=== PATIENT | female | born 1990 | race Caucasian/White ===

== ENCOUNTER 2017-11-24 16:53 | Emergency (ER) | payer OTHER, SELFPAY ==
[2017-11-24 18:37] VITALS: BP 142/73; PULSE 96; RESP 20; TEMP 37.3; O2SAT 98; BMI 28.6
--- NOTE | 2017-11-24 19:08 | CT_ITS ---
CT head/brain wo con HISTORY: ITS.REASON: HEADACHE ORDERING PHYSICIAN: Paul Navarro MD PATIENT AGE: 27 years COMPARISON: None TECHNIQUE: Axial images obtained without contrast. Brain and bone windows reviewed. FINDINGS: No midline shift, mass effect, intracranial hemorrhage, hydrocephalus, or extra-axial fluid collection is evident. There is mild cerebellar tonsillar ectopia somewhat greater on the right. This is of questioned clinical significance and would be better evaluated with MRI if clinically warranted. The calvarium has an unremarkable appearance. No mastoid effusion. There is moderate opacification of the ethmoid air cells posteriorly.. IMPRESSION: 1. No acute intracranial finding. 2. Cerebellar tonsillar ectopia. Consider MRI for further evaluation in this patient with headache. 3. Ethmoid sinus disease.
--- NOTE | 2017-11-24 19:36 | HMH.EDHA ---
ED Disposition Condition on Discharge: Good - Critical Care Critical Care Time: No <Paul Navarro - Last Filed: 11/24/17 19:56> <Guanaco Moss - Last Filed: 11/24/17 20:34> Clinical Impression: Migraine Qualifiers: Migraine type: unspecified Status migrainosus presence: without status migrainosus Intractability: not intractable Qualified Code(s): G43.909 - Migraine, unspecified, not intractable, without status migrainosus Disposition: Home, Self-Care Instructions: Migraine -- Adult, DI for Headache Attestation: On 11/24/17, the high probability of a clinically significant, sudden or life threatening deterioration of the following system(s) required my full and direct attention, intervention and personal management. The time I documented below is in addition to time spent performing reported procedures but includes the following listed in this critical care notation. Medical Decision Making - Remigio Inquiry Pt receiving controlled substance: No <Paul Navarro Indira - Last Filed: 11/24/17 19:56> - CT Data CT Scan: Head Time Received: 20:[address] Reviewed: Yes: I have viewed the radiologist's interpretation Preliminary Findings: Normal/NAD <Guanaco Moss - Last Filed: 11/24/17 20:34> Vital Signs: 11/24/17 18:37 Temperature 99.2 F Temperature Source Temporal Artery Scan Pulse Rate [Brachial] 96 H Respiratory Rate 20 Blood Pressure [Right Arm] 142/73 Blood Pressure Mean [Right Arm] 96 Blood Pressure Source [Right Arm] Automatic Cuff Blood Pressure Position [Right Arm] Sitting 02 Sat by Pulse Oximetry 98 Oxygen Delivery Method Room Air Orders (Tests/Meds): ED MEDICATIONS Discontinued Medications Generic Name Dose Route Start Last Admin Trade Name Freq PRN Reason Stop Dose Admin Diphenhydramine HCl 50 mg 11/24/17 19:13 11/24/17 19:25 Benadryl 50mg/1ml Vial IM 11/24/17 19:14 50 mg ONCE ONE Administration Ketorolac Tromethamine 60 mg 11/24/17 19:13 11/24/17 19:25 Toradol 60mg/2ml Vial IM 11/24/17 19:14 60 mg ONCE ONE Administration Metoclopramide HCl 10 mg 11/24/17 19:13 11/24/17 19:25 Reglan 10mg/2ml Vial IM 11/24/17 19:14 10 mg ONCE ONE Administration Headache HPI - General Mode of Arrival: Ambulatory Source of Information: Patient Limitations: No Limitations Description of Symptoms (Recalled from ER Triage Doc. by RN): PT STATES SHE HAS HAD A 5 H/A FOR 5 DAYS, BLURRY VISION, FEELING LIKE STABBING IN LEFT [place] AREA. - History of Present Illness MD Complaint: headache, migraine (5) Onset (ago): day(s) (5-6) Onset description: gradual Location: left Severity: severe Severity scale (1-10): 10 Quality: throbbing, worst headache of life Relieving factors: nothing Exacerbating factors: movement of head/neck, sitting/standing, light, noise Context: occurred with exertion/activity Associated symptoms: none Treatments prior to arrival: acetaminophen, ibuprofen, migraine medication <Paul Navarro - Last Filed: 11/24/17 19:56> <Guanaco Moss - Last Filed: 11/24/17 20:34> - General Chief Complaint: Headache Stated Complaint: ASIF Time Seen by Provider: 11/24/17 18:37 - History of Present Illness HPI Narrative: This is a 37-year-old female patient arrived to the emergency room with left sided headache, onset 6 days ago. Patient describes this headache as worst of her, although she has had headaches in the past, none of them have been associated. Patient feels nauseated, however she denies any neck stiffness, fever or vomiting. (Paul Navarro) - Related Data Home Medications Medication Instructions Recorded Confirmed Dicyclomine HCl [Bentyl] 10 mg PO DAILY 11/24/17 11/24/17 Allergies Allergy/AdvReac Type Severity Reaction Status Date / Time cefdinir [CEFDINIR] Allergy Mild Verified 11/24/17 17:08 Sulfa (Sulfonamide Allergy Mild Verified 11/24/17 17:08 Antibiotics) [SULFA (SULFONAMIDE ANT
--- NOTE | 2017-11-24 19:39 | ED_ITS ---
ED Disposition Condition on Discharge: Good - Critical Care Critical Care Time: No <Paul Navarro - Last Filed: 11/24/17 19:56> <Guanaco Moss - Last Filed: 11/24/17 20:34> Clinical Impression: Migraine Qualifiers: Migraine type: unspecified Status migrainosus presence: without status migrainosus Intractability: not intractable Qualified Code(s): G43.909 - Migraine, unspecified, not intractable, without status migrainosus Disposition: Home, Self-Care Instructions: Migraine -- Adult, DI for Headache Attestation: On 11/24/17, the high probability of a clinically significant, sudden or life threatening deterioration of the following system(s) required my full and direct attention, intervention and personal management. The time I documented below is in addition to time spent performing reported procedures but includes the following listed in this critical care notation. Medical Decision Making - Remigio Inquiry Pt receiving controlled substance: No <Paul Navarro Indira - Last Filed: 11/24/17 19:56> - CT Data CT Scan: Head Time Received: 20:[address] Reviewed: Yes: I have viewed the radiologist's interpretation Preliminary Findings: Normal/NAD <Guanaco Moss - Last Filed: 11/24/17 20:34> Vital Signs: 11/24/17 18:37 Temperature 99.2 F Temperature Source Temporal Artery Scan Pulse Rate [Brachial] 96 H Respiratory Rate 20 Blood Pressure [Right Arm] 142/73 Blood Pressure Mean [Right Arm] 96 Blood Pressure Source [Right Arm] Automatic Cuff Blood Pressure Position [Right Arm] Sitting 02 Sat by Pulse Oximetry 98 Oxygen Delivery Method Room Air Orders (Tests/Meds): ED MEDICATIONS Discontinued Medications Generic Name Dose Route Start Last Admin Trade Name Freq PRN Reason Stop Dose Admin Diphenhydramine HCl 50 mg 11/24/17 19:13 11/24/17 19:25 Benadryl 50mg/1ml Vial IM 11/24/17 19:14 50 mg ONCE ONE Administration Ketorolac Tromethamine 60 mg 11/24/17 19:13 11/24/17 19:25 Toradol 60mg/2ml Vial IM 11/24/17 19:14 60 mg ONCE ONE Administration Metoclopramide HCl 10 mg 11/24/17 19:13 11/24/17 19:25 Reglan 10mg/2ml Vial IM 11/24/17 19:14 10 mg ONCE ONE Administration Headache HPI - General Mode of Arrival: Ambulatory Source of Information: Patient Limitations: No Limitations Description of Symptoms (Recalled from ER Triage Doc. by RN): PT STATES SHE HAS HAD A 5 H/A FOR 5 DAYS, BLURRY VISION, FEELING LIKE STABBING IN LEFT [place] AREA. - History of Present Illness MD Complaint: headache, migraine (5) Onset (ago): day(s) (5-6) Onset description: gradual Location: left Severity: severe Severity scale (1-10): 10 Quality: throbbing, worst headache of life Relieving factors: nothing Exacerbating factors: movement of head/neck, sitting/standing, light, noise Context: occurred with exertion/activity Associated symptoms: none Treatments prior to arrival: acetaminophen, ibuprofen, migraine medication <Paul Navarro - Last Filed: 11/24/17 19:56> <Guanaco Moss - Last Filed: 11/24/17 20:34> - General Chief Complaint: Headache Stated Complaint: ASIF Time Seen by Provider: 11/24/17 18:37 - History of Present Illness HPI Narrative: This is a 37-year-old female patient arrived to the emergency room with lef
--- NOTE | 2017-11-24 20:04 | PC.NURSE ---
PATIENT STATES PAIN HAS DECREASED AND NOT SHARP BUT STILL HAS S0ME PAIN
== END 2017-11-24 20:41 | disposition home or self-care (01) ==
LOC: UTC 17:01 → ER 18:44
PROVIDERS: Emergency Provider Emergency Medicine; Family Provider Family Medicine
DX: G43.009 Migraine without aura, not intractable, without status migrainosus (principal); F17.210 Nicotine dependence, cigarettes, uncomplicated; Z79.899 Other long term (current) drug therapy
CPT/HCPCS: 70450; 96372; 99203; 99282

== ENCOUNTER → 2020-10-11 12:43 | Outpatient (CLI) | payer OTHER, SELFPAY ==
--- NOTE | 2020-10-11 12:52 | XR_ITS ---
PROCEDURE: XR SHOULDER RT MIN 2V CLINICAL INDICATION: RT SHOULDER INJURY,DECREASED ROM COMPARISON: No exams were available for comparison FINDINGS: No fracture or dislocation. No lytic or blastic change. There is normal mineralization. The joint spaces are well-preserved. No significant degenerative/arthritic changes. No erosive changes evident. Other findings:None. IMPRESSION: No acute findings. Dictated by: Jose Verdugo MD 10/11/2020 13:21 Jose Verdugo MD in [place] 10/11/2020 13:21
== END ==
PROVIDERS: PCP Nurse Practitioner Family; Visit Provider Nurse Practitioner Family
DX: S49.91XA Unspecified injury of right shoulder and upper arm, initial encounter (principal); M25.611 Stiffness of right shoulder, not elsewhere classified
CPT/HCPCS: 73030

== ENCOUNTER 2020-10-15 11:45 | Emergency (ER) | payer OTHER, SELFPAY ==
[2020-10-15 12:10] VITALS: BP 110/60; PULSE 99; RESP 20; O2SAT 97; BMI 29.7
--- NOTE | 2020-10-15 12:42 | HMH.EDUTC ---
[facility] [place] Impression: Sinusitis Qualifiers: Sinusitis location: unspecified location Chronicity: unspecified Qualified Code(s): J32.9 - Chronic sinusitis, unspecified Disposition: Home, Self-Care Condition on Discharge: Good Instructions: Sinusitis, Sinus Headache, DI for Cough -- Adult, Cough Additional Instructions: *Monitor Temp, Over the counter Motrin or Tylenol as directed/as needed Tylenol every 4 hours and Motrin every 6 hours (as long as your family doctor has told you that you can take it) for fever or pain. and straight to ER if unable to lower temp less than 101.0 after medication given *Warm salt water gargles may help to soothe the throat *Throat Lozenges *Warm fluids like tea with honey may help to soothe the throat *Sleep elevated *Humidifier/Vaporizer *Flonase 2 sprays in each nostril daily but be aware that it may take 2-3 days before you notice improvement Follow up IMMEDIATELY for new or worsening symptoms or no Noticeable improvement over the next 48-72 hours. 911 for difficulty breathing or swallowing Prescriptions: Fluticasone Propionate [Flonase 50mcg nasal spray 16gm] 1 spr NS DAILY #1 bottle Transmission Status: Pending to [facility] # Benzonatate [Tessalon Perle 100mg Cap*] 100 mg PO TID PRN #15 cap PRN Reason: Cough Transmission Status: Pending to [facility] # Azithromycin [Z-Yogi 250mg Tab] 250 mg PO DIRECTED #6 tab Transmission Status: Pending to [facility] # Referrals: Donald Henning MD [Primary Care Provider] - As needed Time of Disposition: 12:47 Medical Decision Making - Remigio Inquiry Pt receiving controlled substance: No Remigio was queried for this patient: No Vital Signs: 10/15/20 12:10 Pulse Rate [Radial] 99 H Respiratory Rate 20 Blood Pressure [Right Arm] 110/60 Blood Pressure Mean [Right Arm] 76 Blood Pressure Source [Right Arm] Automatic Cuff Blood Pressure Position [Right Arm] Sitting 02 Sat by Pulse Oximetry 97 Oxygen Delivery Method Room Air [facility] [place] - General Stated complaint: cough, congestion, fever Time Seen by Provider: 10/15/20 12:42 Mode of Arrival: Ambulatory Source of Information: Patient Limitations: No Limitations Description of Symptoms (Recalled from Triage Doc. by RN): COUGH, RUNNY NOSE HEENT Symptoms (Recalled from RN notes): Yes Resp Symptoms (Recalled from RN notes): No Skin Symptoms (Recalled from RN notes): No MS Symptoms (Recalled from RN notes): No Functional Status (Recalled from RN notes): WNL - History of Present Illness Provider Complaint: Maetent states that she has been having sinus pain and pressure, cough and feeling of pressure behind her eyes States that she has been blowing yellowish colored mucous from her nose State that she has been having issues on and off for over a week - Related Data Home Medications Medication Instructions Recorded Confirmed dicyclomine 20 mg tablet PO 30 Days #120 tab 10/24/18 10/24/18 meloxicam 15 mg tablet PO 30 Days #30 tab 10/24/18 10/24/18 Previous Rx's Medication Instructions Recorded Azithromycin [Zithromax 250mg 250 mg PO DIRECTED #6 tab 11/11/18 tab] Promethazine/Dextromethorphan 5 ml PO Q12H PRN #100 ml MDD 11/11/18 [Promethazine-Dm Syrup] 30ML/DAY Azithromycin [Z-Yogi 250mg Tab] 250 mg PO DIRECTED #6 tab 10/15/20 Benzonatate [Tessalon Perle 100mg 100 mg PO TID PRN #15 cap 10/15/20 Cap*] Fluticasone Propionate [Flonase 1 spr NS DAILY #1 bottle 10/15/20 50mcg nasal spray 16gm] Allergies Allergy/AdvReac Type Severity Reaction Status Date / Time cefdinir [CEFDINIR] Allergy Mild Verified 10/24/18 11:29 Sulfa (Sulfonamide Allergy Mild Verified 10/24/18 11:29 Antibiotics) [SULFA (SULFONAMIDE ANTIBIOTICS)] Penicillins [PENICILLINS] Allergy Unknown Verified 10/24/18 11:29 - Worker's Comp Is this a Worker's Comp case?: No [facility] History - Hepatitis
[2020-10-15 13:03] VITALS: BP 110/60; PULSE 99; RESP 20; TEMP 36.6; O2SAT 97
== END 2020-10-15 13:04 | disposition home or self-care (01) ==
PROVIDERS: Emergency Provider Nurse Practitioner; PCP Family Medicine
DX: J32.9 Chronic sinusitis, unspecified (principal); J45.909 Unspecified asthma, uncomplicated; Z88.0 Allergy status to penicillin; Z88.2 Allergy status to sulfonamides
CPT/HCPCS: 99201

== ENCOUNTER → 2021-02-28 10:18 | Outpatient (CLI) | payer OTHER, SELFPAY ==
--- NOTE | 2021-02-28 10:18 | US_ITS ---
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 RIGHT OVARY: [id number] with a volume of 1.8ml. There are small nabothian cysts. There is a 2 cm left ovarian cyst which has unremarkable appearance. IMPRESSION: Unremarkable pelvic ultrasound Dictated by: Jose Verdugo MD 02/28/2021 18:10 Jose Verdugo MD in [place] 02/28/2021 18:10
== END ==
PROVIDERS: PCP Family Medicine; Visit Provider Radiology Diagnostic Radiology
DX: N92.0 Excessive and frequent menstruation with regular cycle (principal); N94.6 Dysmenorrhea, unspecified
CPT/HCPCS: 76830

== ENCOUNTER → 2021-05-06 15:46 | Outpatient (CLI) | payer OTHER, SELFPAY ==
[2021-05-06 16:14] LABS: Basophils % 0.5 % (0.1-2.0); Eosinophils # 0.1 K/mm3 (0.0-0.4); Eosinophils % 1.7 % (0.1-12.0); Hematocrit 35.4 % (37.0-47.0); Lymphocytes % 24.1 % (10-50); Mean Corpuscular Hemoglobin 32.6 pg (27.0-31.2); Mean Platelet Volume 7.5 fl (7.4-10.4); Monocytes # 0.2 K/mm3 (0.1-1.0); Monocytes % 2.9 % (1.7-9.3); Neutrophils # 5.9 K/mm3 (1.8-7.8); Neutrophils % 70.7 % (37.0-80.0); Platelet Count 351 K/mm3 (142-424); Red Blood Count 3.69 M/mm3 (4.20-5.40); White Blood Count 8.3 K/mm3 (4.8-10.8)
[2021-05-06 16:29] LABS: Chloride 107 mmol/L (98-107); Potassium 3.6 mmoL/L (3.5-5.1); Sodium 141 mmol/L (136-145)
[2021-05-06 16:32] LABS: Alanine Aminotransferase 10 U/L (12-78); Albumin Level 3.9 g/dl (3.5-5.0); Albumin/Globulin Ratio 1.2 (1.1-1.8); Alkaline Phosphatase 97 U/L (38-126); Anion Gap 8.6 mEq/L (5-15); Aspartate Amino Transferase 21 U/L (14-36); Bilirubin,Total 0.2 mg/dl (0.2-1.3); Blood Urea Nitrogen 2 mg/dl (7-17); Carbon Dioxide 29 mmol/L (22.0-30.0); Estimated Glomerular Filt Rate 117 ml/min (>60); GFR (African American) 142 ML/MIN (>60); Globulin 3.3 g/dL (1.3-3.2); Glucose 119 mg/dl (74-100); Total Protein,Serum 7.2 g/dl (6.3-8.2)
[2021-05-06 16:54] LABS: Erythrocyte Sedimentation Rate 70 mm/hr (0-20)
[2021-05-06 17:02] LABS: Thyroid Stimulating Hormone 0.91 uIU/mL (0.465-4.68)
[2021-05-06 20:35] LABS: C-Reactive Protein 41.3 mg/L (0-4)
[2021-05-06 21:37] LABS: Vitamin B12 187 pg/mL (239-931)
[2021-05-06 21:39] LABS: Folate 2.75 ng/mL
[2021-05-07 14:33] LABS: Hemoglobin A1C 5.4 % (4.0-6.0)
[2021-05-08 09:06] LABS: RA Latex Turbid. 10.5 IU/mL (0.0-13.9)
[2021-05-09 21:38] LABS: Antinuclear Antibodies, IFA Positive (.)
[2021-05-23 09:20] LABS: Cotinine 168; Nicotine 15.9
== END ==
PROVIDERS: Podiatrist; Visit Provider Nurse Practitioner
DX: M79.673 Pain in unspecified foot (principal); M79.671 Pain in right foot; M79.672 Pain in left foot
CPT/HCPCS: 36415; 80053; 80323; 82607; 82746; 83036; 84443; 84550; 85025; 85651; 86038; 86140; 86431

== ENCOUNTER 2021-06-14 11:23 | Emergency (ER) | payer OTHER, SELFPAY ==
[2021-06-14 11:23] VITALS: BP 112/77; PULSE 83; RESP 19; TEMP 37.2; O2SAT 99; BMI 29.0
--- NOTE | 2021-06-14 11:58 | HMH.EDUTC ---
[facility] [place] Clinical Impression: Exposure to COVID-19 virus Disposition: Home, Self-Care Condition on Discharge: Good Instructions: Preventing the Spread of Coronavirus Discharge Instructions Additional Instructions: You have been tested for COVID19. Please isolate yourself as if you are positive until test results received. Referrals: Russell Quevedo JR, MD [Primary Care Provider] - Time of Disposition: 12:24 Medical Decision Making - Remigio Inquiry Pt receiving controlled substance: No Vital Signs: 06/14/21 11:23 Temperature 98.9 F Temperature Source Oral Pulse Rate [Left Radial] 83 Respiratory Rate 19 Blood Pressure [Right Arm] 112/77 Blood Pressure Mean [Right Arm] 88 Blood Pressure Source [Right Arm] Automatic Cuff Blood Pressure Position [Right Arm] Sitting 02 Sat by Pulse Oximetry 99 Oxygen Delivery Method Room Air - Lab Data Lab results reviewed: Yes: I reviewed the patient's lab results. Lab Results 06/14/21 12:07: Strep Scn Rapid Clinic Negative Orders (Tests/Meds): ORDERS Category Date Time Status Covid-19 Nasal PCR ([facility]) Routine Lab 06/14/21 11:52 Received Strep Screen Confirmation Stat Micro 06/14/21 12:07 Received [facility] [place] - General Stated complaint: sore throat, body aches, fever, ear pain Time Seen by Provider: 06/14/21 11:58 - History of Present Illness Provider Complaint: Sore throat, body aches, fever, bilateral ear pain, headache X 2 days. Dawit's boss recently diagnosed with COVID19. Dawit has similar symptoms and is being tested elsewhere. Onset (ago): day(s) (2) Location: head Relieving factors: none Exacerbating factors: none Associated symptoms: cough, fever/chills, malaise Treatments prior to arrival: none - Related Data Home Medications Medication Instructions Recorded Confirmed citalopram 10 mg tablet 10 mg PO tab 02/25/21 05/06/21 dicyclomine 10 mg capsule 10 mg PO cap 02/25/21 05/06/21 Allergies Allergy/AdvReac Type Severity Reaction Status Date / Time cefdinir [CEFDINIR] Allergy Mild Verified 05/06/21 14:19 Sulfa (Sulfonamide Allergy Mild Verified 05/06/21 14:19 Antibiotics) [SULFA (SULFONAMIDE ANTIBIOTICS)] Penicillins [PENICILLINS] Allergy Unknown Verified 05/06/21 14:19 [facility] History - Hepatitis A Screen Attestation statement:: This patient has been screened for Hepatitis A risk factors. I have reviewed the patient's past medical history: Yes Medical History: Reports:: Asthma, Migraine Other Medical History: Reports: Other Laterality Cases: Bilateral: Tonsillectomy Other Surgeries: Yes: Cholecystectomy, Colonoscopy, Tubal Ligation Amputation: No Fractures: No Comment: Large Mole removed 2008, oral surgery - Social History Smoking Status: Current every day smoker Tobacco Type: cigarettes # Packs/Day (cigarettes): 1 Alcohol Intake: never Occupational Status: other Housing: house Family Hx:: Diabetes, Coronary Artery Disease, Asthma Comment: Multiple Sclerosis, Arthritis ROS Obtained: Yes All systems reviewed & no additional complaints - Constitutional Constitutional: Reports system reviewed and no additional complaints, except as docu, Reports chills, Reports fever(s), Reports headache(s), Reports malaise - ENT Ears, Nose, Mouth, and Throat: Reports nasal congestion, Reports sore throat - Respiratory Respiratory: Reports cough Physical Exam - General General appearance: alert, in no apparent distress - Head Head exam: normocephalic - Eye Eye exam: Present: PERRL - Expanded ENT Exam TM/Canal exam: Bilateral TM: erythema Nose exam: Absent: sinus tenderness Throat exam: Present: tonsillar erythema, tonsillomegaly - Neck Neck exam: Present: lymphadenopathy - Chest Chest inspection: Present: normal inspection, symmetric chest wall rise - Respiratory Respiratory exam: Present: normal lung sounds bilaterally. Absent: respiratory distress, wheezes - Cardiovascul
[2021-06-14 12:14] LABS: UTC Strep Screen (Rapid) Negative (Negative)
[2021-06-14 12:35] VITALS: BP 112/77; PULSE 83; RESP 19; TEMP 37.2; O2SAT 99
== END 2021-06-14 12:37 | disposition home or self-care (01) ==
PROVIDERS: Emergency Provider Physician Assistant; PCP Family Medicine
DX: Z20.822 Contact with and (suspected) exposure to COVID-19 (principal); J02.9 Acute pharyngitis, unspecified; R50.9 Fever, unspecified; J45.909 Unspecified asthma, uncomplicated; Z88.0 Allergy status to penicillin; Z88.2 Allergy status to sulfonamides
CPT/HCPCS: 87880; 99202; G0463; U0003

== ENCOUNTER → 2021-08-09 09:57 | Outpatient (CLI) | payer OTHER, SELFPAY ==
--- NOTE | 2021-08-09 09:59 | MR_ITS ---
PROCEDURE INFORMATION: Exam: MR Left Lower Extremity Joint Without Contrast, Knee Exam date and time: 08/09/2021 9:59 AM Age: 30 years old Clinical indication: Patient HX: Left anterior knee pain and swelling, numbness x2 weeks. No injury; Additional info: Left knee pain, tibial torsion, instability TECHNIQUE: Imaging protocol: MR of the Left lower extremity joint without contrast. Exam focused on the knee. COMPARISON: No relevant prior studies available. FINDINGS: Bones and cartilage: No acute fracture. No bone contusion. No aggressive bone lesion. Scattered foci of hematopoietic marrow. Articular cartilage is preserved. Joint spaces: Trace joint effusion. Bursae: Small Ireland's cyst measuring 1.1 x 0.8 x 2.6 cm. Medial meniscus: There is mild intrasubstance high signal within the posterior horn of the medial meniscus, without extension to an articular surface, and therefore not meeting criteria for a tear. Lateral meniscus: Normal. Anterior cruciate ligament: Unremarkable. No tear. Posterior cruciate ligament: Unremarkable. No tear. Medial capsule and supporting structures: Unremarkable. No tear. Lateral capsule and supporting structures: Unremarkable. No tear. Extensor mechanism of knee: Unremarkable. No tear. Tibial tuberosity to trochlear groove distance is within normal limits. Muscles: Mild tendinosis of the medial head gastrocnemius tendon origin. Soft tissues: Unremarkable. IMPRESSION: 1. Mild intrasubstance high signal within the posterior horn of the medial meniscus, without evidence of a meniscal tear. 2. Mild medial head gastrocnemius tendinosis. 3. Small Ireland's cyst.
== END ==
PROVIDERS: PCP Family Medicine; Visit Provider Nurse Practitioner Family
DX: M25.562 Pain in left knee (principal); M21.869 Other specified acquired deformities of unspecified lower leg; M25.362 Other instability, left knee
CPT/HCPCS: 73721

== ENCOUNTER 2021-08-22 18:02 | Emergency (ER) | payer OTHER, SELFPAY ==
[2021-08-22 18:04] VITALS: BP 121/80; PULSE 70; RESP 19; TEMP 37.1; O2SAT 98
--- NOTE | 2021-08-22 18:46 | HMH.EDGENADL ---
ED Disposition Clinical Impression: Paresthesia of left foot Disposition: Home, Self-Care Condition on Discharge: Good Instructions: DI for Numbness/Tingling Referrals: Donald Henning MD [Primary Care Provider] - Gerardo Quinn MD [Staff Physician] - - Critical Care Critical Care Time: No Attestation: On 08/22/21, the high probability of a clinically significant, sudden or life threatening deterioration of the following system(s) required my full and direct attention, intervention and personal management. The time I documented below is in addition to time spent performing reported procedures but includes the following listed in this critical care notation. Medical Decision Making - Medical Records Medical records reviewed: Yes: I reviewed the patient's medical records. - Remigio Inquiry Pt receiving controlled substance: No Vital Signs: 08/22/21 18:04 Temperature 98.8 F Temperature Source Oral Pulse Rate [Radial] 70 Respiratory Rate 19 Blood Pressure [Right Radial Artery] 121/80 Blood Pressure Mean [Right Radial Artery] 93 Blood Pressure Position [Right Radial Artery] Sitting 02 Sat by Pulse Oximetry 98 - Lab Data Lab Results 08/22/21 18:34: D-Dimer 0.44 - Radiology Data #1 Image(s): Knee Image Reviewed: Yes I reviewed the patient's radiology results, Yes I reviewed the patient's radiology image, Yes I have reviewed radiologist's interpretation IMPRESSION: 1. Mild intrasubstance high signal within the posterior horn of the medial meniscus, without evidence of a meniscal tear. 2. Mild medial head gastrocnemius tendinosis. 3. Small Ireland's cyst. - Reevaluation(s) Time: 19:09 Reevaluation #1: On reevaluation, patient is feeling better. Her D-dimer is negative. Again her symptoms are not consistent with DVT. I did explain to her if the patient would like to come back in the morning to obtain full vascular studies we can obtain this. The compartment is soft and there are no signs of compartment syndrome. There is no evidence of vascular compromise. Patient will maintain her orthopedic follow-up. Given strict return precautions. Verbalized understanding. Medical Decision Narrative: 30-year-old female presented to the emergency department with some numbness of the left foot. I do believe her symptoms are consistent with paresthesia. She does not appear to have any obvious neuro deficit. She has good sensation to pain. I did review the patient's MRI. Did not show any acute abnormality. We will obtain D-dimer at this time as I do not have ultrasound available. However I do believe her symptoms are not consistent with acute DVT. Hemodynamically stable. Work-up initiated. General Adult HPI - General Chief complaint: PAIN Stated complaint: Pain left leg no fellings Time Seen by Provider: 08/22/21 18:10 Mode of Arrival: Wheelchair Limitations: No Limitations Description of Symptoms (Recalled from ER Triage Doc. by RN): TO ED PER PVT CAR WITH C/O NUMBNESS, TINGLING, LT LOWER LEG STATES I CAN'T FEEL ANYTHING FROM KNEE DOWN. PT STATES SHE HAD A MRI 08/09 FOR KNEE PAIN - History of Present Illness HPI narrative: 30-year-old female presented to the emergency department with some paresthesias in her left foot. Patient states that she has had this for the last 3 days. The patient has also been dealing with some knee discomfort for quite some time. She recently had an MRI which showed some bursitis, however no other fractures or dislocations. The patient is scheduled to follow-up with orthopedic surgery next week. However over the last few days she started getting some numbness and tingling in her left foot and toes. She denies any new trauma to the area. She is able to walk on it, however she states that it just feels funny. She is not having any fevers or chills. Denies any injections to the area. No chest pain or shortness of breath. No abdominal pain or vomiting. No h
[2021-08-22 18:54] LABS: D-Dimer 0.44 ug/mL (0.0-0.5)
[2021-08-22 19:13] VITALS: BP 127/86; PULSE 73; RESP 18; TEMP 37.1; O2SAT 98
== END 2021-08-22 19:15 | disposition home or self-care (01) ==
PROVIDERS: Emergency Provider Emergency Medicine; PCP Family Medicine
DX: M79.672 Pain in left foot (principal); M79.662 Pain in left lower leg; F17.210 Nicotine dependence, cigarettes, uncomplicated; Z88.0 Allergy status to penicillin; Z88.2 Allergy status to sulfonamides
CPT/HCPCS: 85378; 99282

== ENCOUNTER → 2021-09-12 07:35 | Outpatient (CLI) | payer OTHER, SELFPAY ==
--- NOTE | 2021-09-12 07:39 | XR_ITS ---
PROCEDURE: XR KNEE LT 4V CLINICAL INDICATION: LT knee pain COMPARISON: No exams were available for comparison FINDINGS: No fracture or dislocation. No lytic or blastic change. There is normal mineralization. There is slight decrease in the joint space medially with minimal osteophyte formation along the medial aspect of the proximal tibia Other findings:None. 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
== END ==
PROVIDERS: PCP Family Medicine; Visit Provider Orthopaedic Surgery
DX: M25.562 Pain in left knee (principal)
CPT/HCPCS: 73564

== ENCOUNTER 2021-09-12 09:27 | Outpatient (RCR) | payer OTHER, SELFPAY | END 2021-09-12 10:24 | disposition home or self-care (01) | LOC: PT 09:27 | PROVIDERS: Visit Provider Orthopaedic Surgery | DX: S83.242A Other tear of medial meniscus, current injury, left knee, initial encounter (principal) | CPT/HCPCS: 97760 ==

== ENCOUNTER 2021-11-07 14:37 | Emergency (ER) | payer OTHER, SELFPAY ==
[2021-11-07 16:30] VITALS: BP 136/86; PULSE 70; RESP 19; TEMP 37; O2SAT 99; BMI 27.8
[2021-11-07 17:05] LABS: UTC Influenza A Antigen Negative (Negative); UTC Influenza B Antigen Negative (Negative); UTC Strep Screen (Rapid) Negative (Negative)
--- NOTE | 2021-11-07 17:26 | HMH.EDUTC ---
[facility] [place] Clinical Impression: Otitis media Qualifiers: Otitis media type: suppurative Chronicity: acute Laterality: bilateral Recurrence: non-recurrent Spontaneous tympanic membrane rupture: without spontaneous rupture Qualified Code(s): H66.003 - Acute suppurative otitis media without spontaneous rupture of ear drum, bilateral Sinusitis Qualifiers: Sinusitis location: unspecified location Chronicity: acute Recurrence: non-recurrent Qualified Code(s): J01.90 - Acute sinusitis, unspecified Acute bronchitis Qualifiers: Bronchitis organism: unspecified organism Qualified Code(s): J20.9 - Acute bronchitis, unspecified Disposition: Home, Self-Care Condition on Discharge: Good Instructions: DI for Sinusitis Additional Instructions: Drink plenty of fluids. Take tylenol or ibuprofen for pain or fever. Take the medications as directed. Follow up with your regular doctor. GO TO THE ER FOR ANY WORSENING SYMPTOMS Quarantine until you know the results of your covid-19 test. If it is positive, the health department should call you and give you further instructions about your length of Quarantine and other things. Notify your school or workplace of your results and follow their instructions regarding return to work/school. The cough medication (promethazine dm) will make you drowsy, so don't drive or operate heavy machinery after taking it. Prescriptions: Promethazine/Dextromethorphan [Promethazine-Dm Syrup] 5 ml PO Q6HP PRN #240 ml PRN Reason: Cough Transmission Status: Received by [email or web address] # methylPREDNISolone [Medrol] 4 mg PO DIRECTED 6 Days #21 packet Transmission Status: Received by [email or web address] # Azithromycin [Z-Yogi 250mg Tab*] 250 mg PO UD DOSE PK #6 tab Transmission Status: Received by [email or web address] # Referrals: Donald Henning MD [Primary Care Provider] - Time of Disposition: 17:58 Medical Decision Making - Medical Records Medical records reviewed: No: I reviewed the patient's medical records. - Remigio Inquiry Pt receiving controlled substance: No Vital Signs: 11/07/21 16:30 11/07/21 18:03 Temperature 98.6 F 98.6 F Temperature Source Oral Pulse Rate 70 Pulse Rate [Right Brachial] 70 Respiratory Rate 19 19 Blood Pressure 136/86 Blood Pressure [Right Arm] 136/86 Blood Pressure Mean [Right Arm] 102 Blood Pressure Source [Right Arm] Automatic Cuff Blood Pressure Position [Right Arm] Sitting 02 Sat by Pulse Oximetry 99 Oxygen Delivery Method Room Air - Lab Data Lab results reviewed: Yes: I reviewed the patient's lab results. Lab Results 11/07/21 16:47: Influenza Type A Ag Negative, Influenza Type B Ag Negative 11/07/21 16:47: Strep Scn Rapid [facility] Negative [facility] [place] - General Stated complaint: sore throat, cough, soa, muscle pain Time Seen by Provider: 11/07/21 17:26 Mode of Arrival: Ambulatory Source of Information: Patient Limitations: No Limitations Description of Symptoms (Recalled from Triage Doc. by RN): PATIENT C/O SORE THROAT, RUNNY NOSE, COUGH, CONGESTION, BODY ACHES, AND SOA X 1 WEEK HEENT Symptoms (Recalled from RN notes): Yes Resp Symptoms (Recalled from RN notes): Yes Skin Symptoms (Recalled from RN notes): No MS Symptoms (Recalled from RN notes): No Functional Status (Recalled from RN notes): WNL - History of Present Illness Provider Complaint: She states that for the past 2 weeks she has had a productive cough with greenish sputum. She has sinus congestion and ear pain also. - Related Data Home Medications Medication Instructions Recorded Confirmed citalopram 10 mg tablet 10 mg PO tab 02/25/21 09/12/21 dicyclomine 10 mg capsule 10 mg PO cap 02/25/21 09/12/21 cholecalciferol (vitamin D3) 50 50 mcg PO DAILY 09/12/21 09/12/21 mcg (2,000 unit) capsule Previous Rx's Medication Instructions Recorded Azithromycin [Z-Yogi 250mg Tab*] 250 mg PO UD DOSE PK #6 tab 11/07/21 [place]
[2021-11-07 18:03] VITALS: BP 136/86; PULSE 70; RESP 19; TEMP 37; O2SAT 99
== END 2021-11-07 18:07 | disposition home or self-care (01) ==
LOC: UTC 14:39
PROVIDERS: Emergency Provider Nurse Practitioner Family; PCP Family Medicine
DX: H66.003 Acute suppurative otitis media without spontaneous rupture of ear drum, bilateral (principal); J01.90 Acute sinusitis, unspecified; J20.9 Acute bronchitis, unspecified; J45.909 Unspecified asthma, uncomplicated; Z88.0 Allergy status to penicillin; Z88.2 Allergy status to sulfonamides
CPT/HCPCS: 87804; 87880; 99203; C9803; G0463; U0003; U0005

== ENCOUNTER → 2022-08-20 14:44 | Outpatient (CLI) | payer OTHER, SELFPAY ==
--- NOTE | 2022-08-20 14:49 | XR_ITS ---
FINAL REPORT CLINICAL HISTORY: . leg movement causes pain x's 1 wk FINDINGS: Thoracic spine 2 views were obtained. There is no acute fracture. Alignment is normal. The disc spaces are preserved. There is mild anterior osteophyte formation in the midthoracic spine. IMPRESSION: No acute process. Lumbar spine 5 views were obtained. There is no acute fracture. Alignment is normal. There is mild disc space narrowing at L1-L2. IMPRESSION: Mild degenerative disc disease at L1-L2. Reviewed, Interpreted and Dictated by Alejandro Brown MD Transcribed by Raymond Duarte Authenticated and [facility]
== END ==
PROVIDERS: PCP Family Medicine; Visit Provider Nurse Practitioner Family
DX: M54.6 Pain in thoracic spine (principal); M54.42 Lumbago with sciatica, left side
CPT/HCPCS: 72084

== ENCOUNTER → 2023-01-01 12:54 | Outpatient (CLI) | payer OTHER, SELFPAY ==
--- NOTE | 2023-01-01 13:01 | XR_ITS ---
FINAL REPORT CLINICAL HISTORY: PNEUMONIA FINDINGS: Two views of the chest were obtained. The heart size and pulmonary vascularity are within normal limits. The mediastinum is normal. No acute pulmonary abnormality is identified. There is no pneumothorax. The bony thorax is intact. IMPRESSION: No active cardiopulmonary disease. Reviewed, Interpreted and Dictated by Issac Mckay III, MD Transcribed by Theresa Irwin Authenticated and [facility]
[2023-01-01 14:09] LABS: Basophils # 0.1 K/mm3 (0-0.2); Eosinophils # 0.2 K/mm3 (0.0-0.4); Eosinophils % 1.7 % (0.1-12.0); Hematocrit 39.2 % (37.0-47.0); Hemoglobin 12.4 g/dL (12.2-16.2); Lymphocytes # 2.5 K/mm3 (0.7-4.5); Lymphocytes % 21.3 % (10-50); Mean Corpuscular HGB Conc 31.7 g/dL (31.8-35.4); Mean Corpuscular Hemoglobin 31.8 pg (27.0-31.2); Mean Corpuscular Volume 100.5 fl (81-99); Mean Platelet Volume 7.4 fl (7.4-10.4); Monocytes # 0.4 K/mm3 (0.1-1.0); Neutrophils # 8.5 K/mm3 (1.8-7.8); Neutrophils % 73.1 % (37.0-80.0); Platelet Count 413 K/mm3 (142-424); Red Cell Distribution Width 13.4 % (11.5-17.5); White Blood Count 11.7 K/mm3 (4.8-10.8)
[2023-01-01 15:10] LABS: Chloride 107 mmol/L (98-107); Sodium 139 mmol/L (136-145)
[2023-01-01 15:11] LABS: Potassium 4.3 mmoL/L (3.5-5.1)
[2023-01-01 15:13] LABS: Alanine Aminotransferase 15 U/L (12-78); Albumin Level 3.6 g/dl (3.5-5.0); Albumin/Globulin Ratio 1.2 (1.1-1.8); Alkaline Phosphatase 98 U/L (38-126); Anion Gap 7.3 mEq/L (5-15); Aspartate Amino Transferase 19 U/L (14-36); Bilirubin,Total 0.2 mg/dl (0.2-1.3); Blood Urea Nitrogen 3 mg/dl (7-17); Carbon Dioxide 29 mmol/L (22.0-30.0); Estimated Glomerular Filt Rate 116 ml/min (>60); GFR (African American) 140 ML/MIN (>60); Total Protein,Serum 6.6 g/dl (6.3-8.2)
[2023-01-01 15:14] LABS: Calcium 8.5 mg/dl (8.4-10.2); Glucose 108 mg/dl (74-100)
== END ==
PROVIDERS: PCP Nurse Practitioner Family; Visit Provider Nurse Practitioner Family
DX: J18.9 Pneumonia, unspecified organism (principal)
CPT/HCPCS: 36415; 71046; 80053; 85025

== ENCOUNTER 2023-06-29 14:03 | Emergency (ER) | payer OTHER, SELFPAY ==
--- NOTE | 2023-06-29 14:08 | XR_ITS ---
PROCEDURE INFORMATION: Exam: XR Right Knee Exam date and time: 06/29/2023 2:16 PM Age: 32 years old Clinical indication: Pain; Knee; Right; Additional info: Pain around entire knee. TECHNIQUE: Imaging protocol: Radiologic exam of the right knee. Views: 3 views. COMPARISON: No relevant prior studies available. FINDINGS: Bones/joints: There are minimal degenerative changes involving the medial knee compartment with mild joint space narrowing. Remaining joint surfaces are preserved. There is no fracture or malalignment. Soft tissues: Normal. There is no joint effusion. IMPRESSION: Minimal degenerative changes medial knee compartment. No acute bony abnormalities.
[2023-06-29 14:10] VITALS: BP 121/82; PULSE 72; RESP 20; TEMP 37.1; O2SAT 97
--- NOTE | 2023-06-29 14:14 | EXP.UTC ---
Discharge Plan Disposition Patient Disposition: Home, Self-Care Condition: Good Prescriptions Prescriptions: New ibuprofen [IBU] 800 mg tablet 800 mg PO Q8HP PRN (Reason: Moderate Pain) Qty: 30 0RF No Action dicyclomine 20 mg tablet 20 mg PO fluticasone furoate-vilanterol [Breo Ellipta] 100-25 mcg/dose blister with device 1 inh inhalation DAILY Qty: 90 3RF fluticasone propionate [Flonase Allergy Relief] 50 mcg/actuation spray,suspension 2 spray intranasal DAILY 90 Days Qty: 16 2RF Rx Instructions: administer into each nostril Referrals Follow up/Referrals: Segun Lopez DO [Staff Physician] - See instructions Donald Henning MD [Primary Care Provider] - See instructions Activity Restrictions/Add. Instructions Additional Instructions/Restrictions: Rest the extremity, apply ice for 15 minutes as tolerated three or four times per day, Elevate the extremity as tolerated while you are resting. Take ibuprofen for pain. I sent in a prescription to your pharmacy. Follow up with Dr. Lopez (orthopedics). I put in a referral but you need to call his office and schedule an appointment. Follow up with your regular doctor. GO TO THE ER FOR ANY WORSENING SYMPTOMS Clinical Impressions Clinical Impression: Right knee sprain, Contusion of right knee Instructions Patient Instructions: How to Use Crutches, DI for Knee Sprain, How to Use a Knee Immobilizer Discharge ED Provider: Best Valdes [facility] General Stated complaint: [id number] right knee pain, home fall Time Seen by Provider: 06/29/23 14:14 History of Present Illness Provider Complaint: She states that, 3 days ago, she tripped and fell and came down right on the front of her left knee. Since then she has had left knee swelling, stiffness, and pain. Her pain is worse when she tries to walk or bear weight. She denies any other injury. Related Data Home Medications Medication Instructions Recorded Confirmed dicyclomine 20 mg tablet 20 mg PO 05/04/22 02/03/23 Previous Rx's Medication Instructions Recorded fluticasone furoate 100 1 inh inhalation DAILY #90 ea 02/03/23 mcg-vilanterol 25 mcg/dose inhalation powder (Breo Ellipta) fluticasone propionate 50 2 spray intranasal DAILY 90 days 02/03/23 mcg/actuation nasal #16 grams spray,suspension (Flonase Allergy Relief) ibuprofen 800 mg tablet (IBU) 800 mg PO Q8HP PRN Moderate Pain 06/29/23 #30 tabs Allergies Allergy/AdvReac Type Severity Reaction Status Date / Time cefdinir [CEFDINIR] Allergy Mild Verified 02/03/23 10:11 Sulfa (Sulfonamide Allergy Mild Verified 02/03/23 10:11 Antibiotics) [SULFA (SULFONAMIDE ANTIBIOTICS)] Penicillins [PENICILLINS] Allergy Unknown Verified 02/03/23 10:11 [facility] Disclaimer: The information contained in this section may have been updated after the patient was seen, as this information can be updated by other users. 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
[2023-06-29 14:59] VITALS: BP 121/82; PULSE 72; RESP 20; TEMP 37.1; O2SAT 97
== END 2023-06-29 15:16 | disposition home or self-care (01) ==
PROVIDERS: Emergency Provider Nurse Practitioner Family; PCP Family Medicine
DX: S83.91XA Sprain of unspecified site of right knee, initial encounter (principal); S80.01XA Contusion of right knee, initial encounter; F17.210 Nicotine dependence, cigarettes, uncomplicated; J45.40 Moderate persistent asthma, uncomplicated; W01.10XA Fall on same level from slipping, tripping and stumbling with subsequent striking against unspecified object, initial encounter
CPT/HCPCS: 73562; 99212; 99214; G0463

== ENCOUNTER → 2023-07-16 11:09 | Outpatient (CLI) | payer OTHER, SELFPAY ==
--- NOTE | 2023-07-16 11:57 | MR_ITS ---
FINAL REPORT CLINICAL HISTORY: Rt knee pain FROM FALL FINDINGS: Multiplanar MR imaging of the right knee was performed without contrast. The medial and lateral menisci are intact without evidence of meniscal tear. The anterior and posterior cruciate ligaments are intact. The medial collateral ligament and lateral ligamentous complex are intact. The patellar and quadriceps tendons are intact. There is a nondisplaced fracture at the anterior proximal tibia with surrounding bone bruise/marrow edema. No focal abnormality is identified of the articular cartilage. Small joint effusion is seen. The musculature is intact. No soft tissue mass or cyst is identified. IMPRESSION: Nondisplaced fracture of the proximal tibia. Reviewed, Interpreted and Dictated by Issac Mckay III, MD Transcribed by Theresa Irwin Authenticated and [facility]
== END ==
PROVIDERS: PCP Family Medicine; Visit Provider Orthopaedic Surgery
DX: S83.91XA Sprain of unspecified site of right knee, initial encounter (principal); Y99.9 Unspecified external cause status
CPT/HCPCS: 73721

== ENCOUNTER 2023-07-27 15:39 | Outpatient (RCR) | payer OTHER, SELFPAY | END 2023-07-27 16:30 | disposition home or self-care (01) | LOC: PT 15:39 | PROVIDERS: Visit Provider Orthopaedic Surgery | DX: S82.201A Unspecified fracture of shaft of right tibia, initial encounter for closed fracture (principal) | CPT/HCPCS: 97760 ==

== ENCOUNTER → 2023-08-24 13:03 | Outpatient (CLI) | payer OTHER, SELFPAY ==
--- NOTE | 2023-08-24 13:07 | XR_ITS ---
FINAL REPORT CLINICAL HISTORY: Rt Tib fx COMPARISON: MRI dated 07/16/2023 FINDINGS: The anterior proximal tibial fracture seen on MRI of July is not visualized on today's exam. The joint spaces are intact. There is no soft tissue abnormality. IMPRESSION: Anterior proximal tibial fracture seen on MRI of July is not visualized on today's exam. Reviewed, Interpreted and Dictated by Issac Mckay III, MD Transcribed by Kyra Nogueira Authenticated and [facility]
== END ==
PROVIDERS: PCP Family Medicine; Visit Provider Orthopaedic Surgery
DX: S82.201A Unspecified fracture of shaft of right tibia, initial encounter for closed fracture (principal); Y99.9 Unspecified external cause status
CPT/HCPCS: 73590

== ENCOUNTER 2024-03-02 09:12 | Outpatient (CLI) | payer OTHER, SELFPAY ==
--- NOTE | 2024-03-02 09:18 | XR_ITS ---
FINAL REPORT CLINICAL HISTORY: Right Foot Pain COMPARISON: None FINDINGS: RIGHT FOOT 3 views of the right foot were obtained. There is no acute fracture or dislocation. Visualized joint spaces are normally aligned. Soft tissues are unremarkable. IMPRESSION: No acute bony abnormality. Reviewed, Interpreted and Dictated by Alejandro Brown MD Transcribed by Nicolle Rasmussen Authenticated and [facility]
--- NOTE | 2024-03-02 09:18 | XR_ITS ---
FINAL REPORT CLINICAL HISTORY: Left Foot Pain COMPARISON: None FINDINGS: LEFT FOOT Three views of the left foot demonstrate no acute fracture or dislocation. There is a mild hallux valgus deformity. The soft tissues are unremarkable. 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 No acute bony abnormality. Reviewed, Interpreted and Dictated by Alejandro Brown MD Transcribed by Nicolle Rasmussen Authenticated and . [facility]
--- NOTE | 2024-03-02 09:18 | XR_ITS ---
FINAL REPORT CLINICAL HISTORY: Ankle Pain COMPARISON: None FINDINGS: RIGHT ANKLE 3 views of the right ankle were obtained. There is no acute fracture or dislocation. The mortise is intact. Visualized joint spaces are normally aligned. Soft tissues are unremarkable. IMPRESSION: No acute bony abnormality. Reviewed, Interpreted and Dictated by Alejandro Brown MD Transcribed by Nicolle Rasmussen Authenticated and [facility]
--- NOTE | 2024-03-02 09:18 | XR_ITS ---
FINAL REPORT CLINICAL HISTORY: Left Ankle Pain COMPARISON: None FINDINGS: LEFT ANKLE Three views demonstrate no acute fracture or dislocation. The visualized joint spaces are normally aligned. The soft tissues are unremarkable. IMPRESSION: No acute bony abnormality. Reviewed, Interpreted and Dictated by Alejandro Brown MD Transcribed by Nicolle Rasmussen Authenticated and [facility]
== END 2024-03-02 23:59 | disposition home or self-care (01) ==
LOC: RAD 09:13
PROVIDERS: Visit Provider Podiatrist
DX: M25.571 Pain in right ankle and joints of right foot (principal); M25.572 Pain in left ankle and joints of left foot; M79.671 Pain in right foot; M79.672 Pain in left foot
CPT/HCPCS: 73610; 73630

== ENCOUNTER 2024-05-09 13:29 | Outpatient (CLI) | payer OTHER, SELFPAY ==
--- NOTE | 2024-05-09 13:32 | US_ITS ---
FINAL REPORT CLINICAL HISTORY: Decreased Pedal Pulses, current smoker, HTN, hyperlipidemia, bilateral claudication, bilateral rest pain. FINDINGS: ANKLE-BRACHIAL PRESSURE INDICES Pressure indices are as follows: RIGHT LOWER EXTREMITY: Ankle-brachial pressure index: 1.15 Comments: Normal LEFT LOWER EXTREMITY: Ankle-brachial pressure index: 1.2 Comments: Normal CONCLUSION: No evidence of significant obstructive peripheral vascular disease of the lower extremities Reviewed, Interpreted and Dictated by Issac Mckay III, MD Transcribed by Kyra Nogueira Authenticated and [facility]
== END 2024-05-09 23:59 | disposition home or self-care (01) ==
LOC: RT 13:30
PROVIDERS: Visit Provider Nurse Practitioner
DX: R09.89 Other specified symptoms and signs involving the circulatory and respiratory systems (principal)
CPT/HCPCS: 93923

== ENCOUNTER 2024-06-09 13:33 | Outpatient (CLI) | payer OTHER, SELFPAY ==
--- NOTE | 2024-06-09 13:35 | MR_ITS ---
FINAL REPORT CLINICAL HISTORY: left foot pain COMPARISON: None FINDINGS: Multiplanar MR imaging of the left foot was performed without contrast. The Achilles tendon is intact. The plantar fascia is intact. There is moderate narrowing of the 1st MTP joint. There is no evidence of marrow edema. The ankle mortise is intact. The anterior and posterior talofibular ligaments are intact. The supporting tendons about the ankle are intact. The musculature is intact. The plantar aponeurosis is intact. No soft tissue mass or cyst is identified. IMPRESSION: Hypertrophic changes of the 1st MTP. Reviewed, Interpreted and Dictated by Alejandro Brown MD Transcribed by Nicolle Rasmussen Authenticated and . [facility]
== END 2024-06-09 23:59 | disposition home or self-care (01) ==
LOC: RAD 13:35
PROVIDERS: Visit Provider Nurse Practitioner
DX: M20.12 Hallux valgus (acquired), left foot (principal); M21.612 Bunion of left foot
CPT/HCPCS: 73718

== ENCOUNTER 2024-06-29 11:20 | Outpatient (CLI) | payer OTHER, SELFPAY ==
--- NOTE | 2024-06-29 11:30 | ECG_ITS ---
APPROVED REPORT Exam: Resting ECG HR:86 bpm ECG Measurements Heart Rate 86 AXES SD 147 P 60 QRSd 86 QRS 81 QT 346 T 58 QTc 389 Conclusion SINUS RHYTHM NORMAL ECG UNCONFIRMED REPORT Electronically signed by : Donald Mckenzie MD 07/01/2024 08:48:08
--- NOTE | 2024-06-29 11:46 | XR_ITS ---
FINAL REPORT TECHNIQUE: Chest PA & Lateral CLINICAL HISTORY: smoker, hx of pneumonia pre op testing COMPARISON: None FINDINGS: 2 views of the chest were performed. The heart size is normal. The mediastinum is within normal limits. There is no acute cardiopulmonary process. There are no pleural effusions. There is no pneumothorax. The bony thorax appears intact. IMPRESSION: No acute cardiopulmonary process. Reviewed, Interpreted and Dictated by Alejandro Brown MD Transcribed by Kyra Nogueira Authenticated and [facility]
[2024-06-29 12:14] LABS: Basophils # 0.1 K/mm3 (0-0.2); Basophils % 0.8 % (0.1-2.0); Eosinophils # 0.2 K/mm3 (0.0-0.4); Eosinophils % 2.1 % (0.1-12.0); Hematocrit 39.4 % (37.0-47.0); Hemoglobin 12.3 g/dL (12.2-16.2); Lymphocytes # 1.7 K/mm3 (0.7-4.5); Lymphocytes % 20.7 % (10-50); Mean Corpuscular HGB Conc 31.3 g/dL (31.8-35.4); Mean Corpuscular Hemoglobin 31.3 pg (27.0-31.2); Mean Corpuscular Volume 100.1 fl (81-99); Mean Platelet Volume 7.4 fl (7.4-10.4); Monocytes # 0.2 K/mm3 (0.1-1.0); Monocytes % 2.6 % (1.7-9.3); Neutrophils # 6.2 K/mm3 (1.8-7.8); Neutrophils % 73.8 % (37.0-80.0); Platelet Count 389 K/mm3 (142-424); Red Blood Count 3.94 M/mm3 (4.20-5.40); White Blood Count 8.4 K/mm3 (4.8-10.8)
[2024-06-29 12:35] LABS: Alanine Aminotransferase 33 U/L (12-78); Albumin Level 3.8 g/dl (3.5-5.0); Albumin/Globulin Ratio 1.2 (1.1-1.8); Alkaline Phosphatase 99 U/L (38-126); Anion Gap 10.1 mEq/L (5-15); Aspartate Amino Transferase 28 U/L (14-36); Bilirubin,Total 0.3 mg/dl (0.2-1.3); Blood Urea Nitrogen 6 mg/dl (7-17); Calcium 9.4 mg/dl (8.4-10.2); Carbon Dioxide 25 mmol/L (22.0-30.0); Chloride 108 mmol/L (98-107); Estimated Glomerular Filt Rate 96 ml/min (>60); GFR (African American) 117 ML/MIN (>60); Globulin 3.3 g/dL (1.3-3.2); Glucose 107 mg/dl (74-100); Potassium 4.1 mmoL/L (3.5-5.1); Sodium 139 mmol/L (136-145); Total Protein,Serum 7.1 g/dl (6.3-8.2)
[2024-07-08 03:36] LABS: 1,25 Dihydroxy Vitamin D 73 pg/mL (.); 1,25-Dihydroxy, Vitamin D-2 <10 pg/mL (.); 1,25-Dihydroxy, Vitamin D-3 73 pg/mL (.)
[2024-07-10 13:00] LABS: Cotinine 191.9; Nicotine 12.3
== END 2024-06-29 23:59 | disposition home or self-care (01) ==
LOC: LAB 11:21
PROVIDERS: Visit Provider Podiatrist
DX: Z01.818 Encounter for other preprocedural examination (principal); M79.672 Pain in left foot; M20.12 Hallux valgus (acquired), left foot; M79.675 Pain in left toe(s)
CPT/HCPCS: 36415; 71046; 80053; 80323; 82652; 85025; 93005; G0480

== ENCOUNTER 2024-07-12 07:24 | Day surgery (SDC) | payer OTHER, SELFPAY ==
[2024-07-07 14:37] VITALS: BMI 37.0
[2024-07-12] VITALS (8 sets, daily range): BP systolic 96–132; BP diastolic 63–87; PULSE 91–105; RESP 16–24; TEMP 36.4–36.5; O2SAT 94–100
--- NOTE | 2024-07-12 | XR_ITS ---
FINAL REPORT CLINICAL HISTORY: FOOT IN OR .83 MGY .7 MIN FINDINGS: FLUOROSCOPY LESS THAN 1 HOUR HISTORY: FINDINGS: Fluoroscopic guidance was provided for fusion instrumentation of the medial cuneiform and the first metatarsal. A single spot film was obtained. 0.7 minutes of fluoroscopy time were used, with a dosage of 0.83 mGy. IMPRESSION: As above. Reviewed, Interpreted and Dictated by Issac Mckay III, MD Transcribed by Kyra Nogueira Authenticated and [facility]
--- NOTE | 2024-07-12 08:14 | EXP.ANES.CKL ---
[facility] Disclaimer: The information contained in this section may have been updated after the patient was seen, as this information can be updated by other users. Medical History Abnormal chest xray Allergic rhinitis, unspecified Moderate persistent asthma Dyspnea on exertion Cough [id number] syndrome manifesting as chronic dyspnea History of 2019 novel coronavirus disease (COVID-19) Asthma Recurrent pneumonia Surgical History History of removal of skin mole History of carpal tunnel surgery of right wrist History of tubal ligation History of cholecystectomy History of tonsillectomy Family History Other Asthma COPD (chronic obstructive pulmonary disease) Diabetes Heart disease Hypertension Social History Smoking Status: Current every day smoker tobacco type: cigarettes packs per day: 1 second hand exposure: Yes alcohol intake: never substance use type: denies use current occupational status: other Travel in the last 8 weeks: None housing: house [facility] Anesthesia Checklist Patient Identification Patient Identification: Arm Band Structural Data Admitted From: Home Planned Operative Procedure/s: Left lapidus bunionectomy Consent for Planned Operative Procedure(s) Verified: Yes Verified Documents: Surgical Consent and History and Physical NPO Status Verified Time NPO: 00:00 Chart Verification Results Verified: CBC, BMP and HCG Additional verifications Anesthesia Reactions: Yes (anxiety) Hx Blood Transfusions: No Blood Transfusion Reaction: No Airway Assessment Mallampati Score:: Class I C-Spine Mobility Assessed: Yes TMJ Mobility Assessed: Yes Dentition: Dentures-poor fitting Neurological Assessment Level of Consciousness: Awake Hx Seizures: No Numbness or tingling in extremities: Yes Anesthesia Plan Anesthesia Risk discussed: Yes Anesthesia Plan: Verified ASA Class: II Anesthesia Type: General w/block
[2024-07-12 08:19] LABS: Urine Pregnancy, HCG Qual. Negative (Negative)
[2024-07-12] MEDS: LACTATED RINGERS 1000ML 1,000 ML 25 ML IV (08:24)
--- NOTE | 2024-07-12 11:45 | XR_ITS ---
FINAL REPORT CLINICAL HISTORY: s/p lapidus COMPARISON: 03/02/2024 FINDINGS: LEFT FOOT: Three views of the left foot were obtained. There is no acute fracture or dislocation. Postoperative changes of fusion of the first metatarsal and medial cuneiform. Soft tissue air is identified. There is mild degenerative change of the first metatarsal phalangeal joint. IMPRESSION: Postoperative changes of fusion of the first metatarsal and medial cuneiform, new since the prior film of March 02. Soft tissue air is identified. Mild degenerative change Reviewed, Interpreted and Dictated by Issac Mckay III, MD Transcribed by Kyra Nogueira Authenticated and [facility]
--- NOTE | 2024-07-12 11:52 | P.PNANES_ITS ---
[facility] Anesthesia Record Part I Anesthesia Record I Intake, IV Amount: 900 Hydration: Adequate Estimated blood loss (mL): 19 Urine output (mL): 0 Blood Products used (#): none Blood Pressure: 115/63 SaO2: 100 Pulse Rate: 99 Airway Patency: Patent Respiratory Rate: 24 Temperature: 97.7 F Patient is:: Drowsy and Stable
[2024-07-12] MEDS: MORPHINE 2MG/ML SYRINGE 2 MG IV (11:55)
--- NOTE | 2024-07-12 12:37 | EXP.OP.NOTE ---
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 Recent imaging reviewed. The patient has tried modification of activity/shoe gear, taping, bunion splint/strapping, inserts, ice, elevation, NSAIDs, stretching. After a long discussion with the patient in regards to the conservative versus surgical treatment for the bunion deformity, the patient has elected to proceed with surgery because they have failed conservative treatment and continue to have pain and worsening symptoms affecting daily activities. The patient has been instructed on the planned procedure, all risk versus benefits of the procedure to include bleeding, infection, nerve and blood vessel damage, need for further surgery, delay in healing of soft tissue or bone, failure of bones to heal, non-union, mal-union, prolonged pain and recovery, prolonged swelling, CRPS/RSD, DVT/PE and anesthetic complications inclduing . Discussed increased risk of wound healing complications and infection due to smoking history. Smoking cessation given. Patient understands if there is wound complications, it could lead to infection warranting oral or IV antibiotics, gangrene necessitating toe amputation. No guarantees were given. All questions fully answered. The patient verbalized understanding and agreed to proceed with surgery. Written consent was obtained. Operative findings:: Left moderate hallux valgus bunion deformity noted. Mild gastrocnemius equinus which was reducible. Hyper mobility with increased range of motion at the first metatarsal cuneiform joint. There was some bony hypertrophy and dorsal spurring at the first metatarsal cuneiform joint and at the lateral cuneiform. Post Lapidus procedure the first MTPJ realigned. There was a small prominence on the metatarsal not a true dorsal medial eminence. A separate incision was made over the medial first MTPJ. The tissue in this area was thickened with synovitis noted. There was some irregularity to the first metatarsal medially. The bone was irregular and had a defect with hypertrophy noted more proximal and plantar like she had a crush injury in the past with early arthritic spurring changes. Post procedures, 1st MTPJ ROM smooth without crepitus or restriction. Operative note:: On this date and time, the patient was deemed an appropriate surgical candidate. With informed consent signed, the patient was taken to the operating theater after anesthesia did a regional nerve block. The patient was positioned supine. General anesthesia induced. Tourniquet was applied to the mid calf. The left lower extremity was prepped and draped in normal sterile fashion. IV Clindainfused. Left calcaneal autograft bone harvest: Attention was directed to the calcaneus where a an incision was mapped out. Dissection was carried down full-thickness to the level of the bone. Utilizing an autograft bone harvester drill was inserted into the calcaneus and drill. Approximately 5 cc of calcaneus cancellous bone was obtained. Wound was flushed with saline. Nylon used to close the skin. Left Lapidus bunionectomy: Tourniquet was inflated 225 mmHg. Attention directed to the dorsal medial foot where an incision was mapped out over the first metatarsal cuneiform joint. Dissection carried down full-thickness down to the level of the bone with care taken to maintain surgical hemostasis and preserve neurovascular structures. There was arthritic changes noted to the dorsal lateral aspect of the first tarsometatarsal (TMT) joint. First TMT release performed. Attention to is directed to the first interspace where a stab incision was made at the MTP joint just lateral to the EHL tendon. Lateral capsule incised and a complete suspensory ligament release was completed. There was reduction of the hallux valgus deformity noted. Next a pin was inserted dorsal medial parallel to the first TMT joint and the bunion deformity was reduced. Next in standard technique the Lapiplasty 3in1 guide and positioner was inserted into the TMT joint. Intraoperative fluoroscopy was utilized to confirm position. The positioner was tightened and the deformity was reduced. The sesamoids were realigned underneath the first metatarsal head. At this point temporary fixation was inserted. Cut guide applied and bone cuts were made. A rongeur was used to resect excess dorsal spur and spurring from lateral met-cuneiform joint. Next the incision was flushed with copious amounts of normal sterile saline. The joint was then distracted and the joint surfaces were fenestrated with a 2 mm drill fenestrating subchondral bone surfaces. The joint was then compressed and provisional fixation was inserted. The autograft from the calcaneus was inserted to the fusion site. A dorsal lateral Speed plate was placed across the lateral TMT joint. Ronguer used to resect spurring from medial met base and a second Speed plate directly medial along the ridge of the metatarsal across the cuneiorm. AP and lateral fluoroscopy views used to confirm position of the fixation. Adequate reduction of the deformity was noted with stable fixation. A splay test was performed and there was no instability noted at the level of the intercuneiform's. There was no gapping at the level of the metatarsal or cuneiforms. Vicryl used to close deep and subcutaneous tissue. Nylon was used to reapproximate skin in an interrupted suture fashion. Left 1st MTPJ capsulorrhaphy: There is some mild distal interphalangeus with a irregularity to the medial metatarsal head still noted. A separate incision was made over the MPJ. The joint capsule was noted to be synovitic and thickened and was resected with a 15 blade and forceps. A piece of the abnormal capsule was sent to pathology as tissue. Next rongeur and hand rasp were used to smooth down the irregularity the and defect noted to the medial first metatarsal head. Wound was flushed. Intraoperative fluoroscopy was used to check position. Willam osteotomy not needed. Wound was flushed with saline. Medial capsulorrhaphy performed and tightened medial joint capsule, repaired with Vicryl. Deep and subcutaneous tissue was reapproximated with Vicryl and the skin was closed with nylon. Application of amniotic graft: Given the patient's comorbidities and smoking history, and risk for wound and skin healing complications, decision was made to use graft in the incisions prior to skin closure. It was inserted without complication. Tourniquet was deflated at 95 minutes and immediate hyperemic response was noted to the digits. Skin was cleansed. Xeroform applied to the dorsal incisions. Gauze used to splint the great toe. A dry sterile dressing was then applied. Patient was awoken from anesthesia and transferred to recovery with vital signs stable. Patient appeared to tolerate procedure and anesthesia well without complication. Fracture boot to be applied prior to discharge home. Materials: [employer] Speed plate x2, [employer] graft x1 (4x4cm) Plan: Maintain dressing clean dry and intact to left foot. NWB to LLE in splint with DME. Has rolling knee scooter. Take prescriptions as directed. Polar pack behind the left knee. Postop x-rays. Follow-up outpatient in 1 week. Tourniquet time (min): 95 Condition: stable Disposition: same day Specimens:: Left 1st MTPJ Complications:: None
--- NOTE | 2024-07-13 07:20 | P.PNANES_ITS ---
[facility] Anesthesia Record Part II Anesthesia Record Part II Discharge Time: 12:05 Destination: Surgical Day Care (OP Surgery) PACU nurse assessment reviewed?: Yes Patient Condition:: Good Anesthesia Complications:: None Swallowing reflex intact?: Yes Airway Patency: Patent Cyanosis?: No Blood Pressure: 108/76 SaO2: 95 Respiratory Rate: 18 Pulse Rate: 94 Temperature: 97.7 F Mental Status: Alert & Oriented Pain level:: 3 Nausea and/or vomitting:: None Intake, IV Amount: 0 Hydration: Adequate
[2024-07-13 07:21] VITALS: BP 108/76; PULSE 94; RESP 18; TEMP 36.5; O2SAT 95
== END 2024-07-12 12:47 | disposition home or self-care (01) ==
PROVIDERS: PCP Student in an Organized Health Care Education/Training Program; Visit Provider Podiatrist
PROC: (CPT 28292; principal; 2024-07-12 09:00)
DX: M20.12 Hallux valgus (acquired), left foot (principal); Z79.899 Other long term (current) drug therapy; F17.210 Nicotine dependence, cigarettes, uncomplicated; M79.675 Pain in left toe(s)
CPT/HCPCS: 28292; 28270; 73620; 73630; 76000; 81025; 96374; C1776; J1100; J2250; J2270; J2405; J3010; J7120

== ENCOUNTER 2024-07-27 09:59 | Outpatient (CLI) | payer OTHER, SELFPAY ==
--- NOTE | 2024-07-27 10:07 | XR_ITS ---
FINAL REPORT CLINICAL HISTORY: Postoperative LT FOOT COMPARISON: 07/12/2024 FINDINGS: LEFT FOOT Three views of the left foot demonstrate sideplates and screws securing the 1st tarsometatarsal joint. There is a large accessory navicular. There are transverse hardware or osteotomy defects within the 2nd metatarsal. . The visualized joint spaces are normally aligned. The soft tissues are unremarkable. IMPRESSION: Postoperative changes as above. Reviewed, Interpreted and Dictated by Alejandro Brown MD Transcribed by Nicolle Rasmussen Authenticated and [facility]
== END 2024-07-27 23:59 | disposition home or self-care (01) ==
LOC: RAD 10:00
PROVIDERS: PCP Student in an Organized Health Care Education/Training Program; Visit Provider Podiatrist
DX: M79.672 Pain in left foot (principal)
CPT/HCPCS: 73630

== ENCOUNTER 2024-08-15 09:56 | Outpatient (CLI) | payer OTHER, SELFPAY ==
--- NOTE | 2024-08-15 10:01 | XR_ITS ---
FINAL REPORT TECHNIQUE: 3 views. CLINICAL HISTORY: Acute left foot pain. COMPARISON: July 27, 2024. FINDINGS: LEFT FOOT Three views of the left foot demonstrate no acute fracture or dislocation. There are postoperative changes of the first tarsometatarsal joint. There is mild degenerative change. There is a small calcification medial to the first metatarsal phalangeal joint. There are postoperative changes involving the second metatarsal. The soft tissues are unremarkable. IMPRESSION: No acute bony abnormality. Degenerative and postoperative change. Reviewed, Interpreted and Dictated by Issac Mckay III, MD Transcribed by Kelly Kulkarni PA-C Authenticated and [facility]
== END 2024-08-15 23:59 | disposition home or self-care (01) ==
LOC: RAD 09:57
PROVIDERS: PCP Student in an Organized Health Care Education/Training Program; Visit Provider Podiatrist
DX: M79.672 Pain in left foot (principal)
CPT/HCPCS: 73630

== ENCOUNTER 2024-08-29 13:12 | Outpatient (CLI) | payer OTHER, SELFPAY ==
--- NOTE | 2024-08-29 13:14 | XR_ITS ---
PROCEDURE INFORMATION: Exam: XR Left Foot Complete; Alignment Exam date and time: 08/29/2024 1:27 PM Age: 33 years old Clinical indication: Pain; Foot; Left; Prior surgery; Surgery date: 1-6 months; Surgery type: Fusion; Additional info: Foot pain TECHNIQUE: Imaging protocol: Radiologic exam of the left foot. Views: 3 or more views. COMPARISON: CR XR FOOT WT BEARING LT 3V 08/15/2024 10:02 AM FINDINGS: Tubes, catheters and devices: Medial and dorsal plate and screws. The hardware appears intact. No abnormal lucencies around the hardware to suggest loosening or infection. Bones/joints: Postoperative changes from arthrodesis across the medial cuneiform 1st metatarsal joint. No acute fracture. Postoperative changes from bunionectomy. Soft tissues: Normal. IMPRESSION: Postoperative changes as discussed. Hardware is intact. Good alignment. No fracture.
[2024-08-29 15:34] LABS: Basophils # 0.1 K/mm3 (0-0.2); Basophils % 0.8 % (0.1-2.0); Eosinophils % 7.6 % (0.1-12.0); Hematocrit 35.8 % (37.0-47.0); Hemoglobin 12.2 g/dL (12.2-16.2); Lymphocytes % 22.8 % (10-50); Mean Corpuscular Volume 94.1 fl (81-99); Mean Platelet Volume 7.5 fl (7.4-10.4); Monocytes # 0.5 K/mm3 (0.1-1.0); Monocytes % 3.7 % (1.7-9.3); Neutrophils # 8.5 K/mm3 (1.8-7.8); Platelet Count 407 K/mm3 (142-424); Red Cell Distribution Width 13.6 % (11.5-17.5); White Blood Count 13.1 K/mm3 (4.8-10.8)
[2024-08-29 15:58] LABS: Erythrocyte Sedimentation Rate 28 mm/hr (0-20)
[2024-08-29 15:59] LABS: Alanine Aminotransferase 24 U/L (12-78); Albumin Level 3.7 g/dl (3.5-5.0); Albumin/Globulin Ratio 1.3 (1.1-1.8); Alkaline Phosphatase 85 U/L (38-126); Anion Gap 8.3 mEq/L (5-15); Aspartate Amino Transferase 28 U/L (14-36); Bilirubin,Total 0.4 mg/dl (0.2-1.3); Blood Urea Nitrogen 5 mg/dl (7-17); Calcium 9.4 mg/dl (8.4-10.2); Carbon Dioxide 27 mmol/L (22.0-30.0); Chloride 107 mmol/L (98-107); Estimated Glomerular Filt Rate 96 ml/min (>60); GFR (African American) 117 ML/MIN (>60); Globulin 2.8 g/dL (1.3-3.2); Glucose 107 mg/dl (74-100); Potassium 3.3 mmoL/L (3.5-5.1); Sodium 139 mmol/L (136-145); Total Protein,Serum 6.5 g/dl (6.3-8.2)
[2024-08-29 16:04] LABS: C-Reactive Protein 6.5 mg/L (0-4)
== END 2024-08-29 23:59 | disposition home or self-care (01) ==
PROVIDERS: PCP Student in an Organized Health Care Education/Training Program; Visit Provider Podiatrist
DX: M79.672 Pain in left foot (principal); R60.9 Edema, unspecified
CPT/HCPCS: 36415; 73630; 80053; 85025; 85651; 86140

== ENCOUNTER 2024-09-05 11:30 | Outpatient (CLI) | payer OTHER, SELFPAY | END 2024-09-05 23:59 | disposition home or self-care (01) | LOC: LAB.DROPOF 09-06 10:07 | PROVIDERS: PCP Podiatrist; Visit Provider Podiatrist | DX: T81.31XD Disruption of external operation (surgical) wound, not elsewhere classified, subsequent encounter (principal); Z98.890 Other specified postprocedural states | CPT/HCPCS: 87070; 87205 ==

== ENCOUNTER 2024-09-08 11:03 | Outpatient (CLI) | payer OTHER, SELFPAY ==
--- NOTE | 2024-09-08 11:03 | CT_ITS ---
PROCEDURE INFORMATION: Exam: CT Left Lower Extremity, Foot Exam date and time: 09/08/2024 11:46 AM Age: 33 years old Clinical indication: Other: Infection; Prior surgery; Surgery date: <1 month; Surgery type: Hardware placement; Additional info: Infection, R/O abscess, check for non-union fusion TECHNIQUE: Imaging protocol: CT of the left lower extremity without and with intravenous contrast was performed. Exam focused on the foot. Radiation optimization: All CT scans at this facility use at least one of these dose optimization techniques: automated exposure control; mA and/or kV adjustment per patient size (includes targeted exams where dose is matched to clinical indication); or iterative reconstruction. Contrast material: ISOVUE; Contrast volume: 80 ml; Contrast route: IV; COMPARISON: MR FOOT LT WO CON 06/09/2024 1:52 PM FINDINGS: Bones/joints: Arthrodesis of the medial cuneiform and 1st metatarsal is fused. No cortical bone destruction or periosteal reaction. Bones of the hindfoot and midfoot are demineralized. No fractures or dislocations. Soft tissues: Few corticated bone fragments in the plantar soft tissues near the base of the 1st metatarsal and medial cuneiform probably postsurgical. IMPRESSION: 1. Intact arthrodesis of the left medial cuneiform 1st metatarsal joint. Hardware is intact with no evidence of loosening. 2. No soft tissue masses or fluid collections in the left foot.
[2024-09-08] MEDS: IOPAMIDOL-370 (76%);100ML BOTTLE 80 ML IV (12:07)
[2024-09-08] MEDS: SODIUM CHLORIDE 0.9% 10ML SYR (RAD ONLY) 10 ML IV (12:07)
== END 2024-09-08 23:59 | disposition home or self-care (01) ==
LOC: RAD 11:03
PROVIDERS: PCP Student in an Organized Health Care Education/Training Program; Visit Provider Podiatrist
DX: T81.31XD Disruption of external operation (surgical) wound, not elsewhere classified, subsequent encounter (principal); Z98.890 Other specified postprocedural states; M79.672 Pain in left foot; L03.116 Cellulitis of left lower limb
CPT/HCPCS: 73702; Q9967

== ENCOUNTER 2024-09-12 12:35 | Inpatient (IN) | payer OTHER, SELFPAY ==
[2024-09-12 12:24] VITALS: BP 143/80; PULSE 80; RESP 19; TEMP 36.9; O2SAT 96; BMI 39.1
--- NOTE | 2024-09-12 12:24 | XR_ITS ---
PROCEDURE INFORMATION: Exam: XR Left Foot Exam date and time: 09/12/2024 1:36 PM Age: 33 years old Clinical indication: Pain; Other: Cellulitis vs osteo? TECHNIQUE: Imaging protocol: Radiologic exam of the left foot. Views: 3 or more views. COMPARISON: CT FOOT LT WO/W CON 09/08/2024 11:46 AM FINDINGS: Bones/joints: There is redemonstration of 1st TMT joint arthrodesis. No hardware-related complication noted. No definitive osseous erosive lesions. No visible fracture or dislocation. Soft tissues: Normal. IMPRESSION: No visible fracture or dislocation. No definitive osseous erosive lesions.
--- NOTE | 2024-09-12 12:27 | EXP.HP ---
History of Present Illness *Admission Date: 09/12/24 *Reason for visit:: Left foot pain *History of present illness: Ms. Bustillos is a 33-year-old female who presented from podiatry clinic for direct admission due to concern of cellulitis and infection at previous surgical site. She underwent left Lapidus bunionectomy with calcaneal autograft bone harvest on 07/12/24. Surgery was routine and uncomplicated. Postoperative course was complicated by patient's history of smoking. She did have cellulitis and early wound dehiscence which resolved with oral antibiotics and local wound care. She unfortunately had recurrence of cellulitis after beginning soaks of her foot. Cellulitis unresolved with courses of Keflex and doxycycline. Has also used topical mupirocin and gentamicin. Was seen last week in podiatry office with concern for cellulitis. Labs at that time showed mild elevation of ESR and white count of 13. Presents today with persistent redness around wounds. CT performed on 09/08, hardware at that time was intact with no evidence of loosening. Medicine was consulted for admission and further management. She denies any shortness of breath, chest pain, headache. Does complain however of having some nausea and upset stomach. Afebrile in the office but complains of some subjective low-grade fevers. Also having congestion and ear discomfort. [facility] Disclaimer: The information contained in this section may have been updated after the patient was seen, as this information can be updated by other users. 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 History of 2019 novel coronavirus disease (COVID-19) Asthma Recurrent pneumonia Surgical History History of removal of skin mole History of carpal tunnel surgery of right wrist History of tubal ligation History of cholecystectomy History of tonsillectomy Family History Other Asthma COPD (chronic obstructive pulmonary disease) Diabetes Heart disease Hypertension Social History Smoking Status: Current every day smoker tobacco type: cigarettes packs per day: 1 second hand exposure: Yes alcohol intake: never substance use type: denies use current occupational status: other Travel in the last 8 weeks: None housing: house Other Medical History Have you received the Flu Vaccine for this season: No Have you received the Pneumonia Vaccine: Yes Review of Systems Review of Systems Review of systems (narrative): 14 point review of systems performed, pertinent positives and negatives as per HPI Meds Home Medications and Allergies Home Medications ?Medication ?Instructions ?Recorded ?Confirmed ?Type dicyclomine 20 mg tablet 20 mg PO TID 05/04/22 09/12/24 History baclofen 10 mg tablet 10 mg PO DAILY 03/02/24 09/12/24 History cholecalciferol (vitamin D3) 50 50 mcg PO DAILY 03/02/24 09/12/24 History mcg (2,000 unit) tablet (Vitamin D3) cyanocobalamin (vitamin B-12) 1,000 mcg PO DAILY 03/02/24 09/12/24 History 1,000 mcg tablet furosemide 20 mg tablet 20 mg PO DAILY 03/02/24 09/12/24 History potassium chloride 20 mEq 20 meq PO DAILY 03/02/24 09/12/24 History tablet,extended release iron fum,pscplx 125 mg-folic acid 1 cap PO DAILY 05/04/24 09/12/24 History 1 mg-vit C 40 mg-niacin 3 mg capsule (Iron Folate-F) pyridoxine (vitamin B6) 100 mg 100 mg PO DAILY 05/04/24 09/12/24 History tablet bupropion HCl 150 mg tablet,12 hr 150 mg PO DAILY 06/29/24 09/12/24 History sustained-release ibuprofen 600 mg tablet 600 mg PO TID PRN pain 30 days #90 07/11/24 09/12/24 Rx tabs ondansetron 4 mg disintegrating 4 mg PO Q6H nausea and vomiting 07/11/24 09/12/24 Rx tablet #30 tabs pravastatin 80 mg tablet 80 mg PO DAILY 08/07/24 09/12/24 History mupirocin 2 % topical ointment 1 applic topical BID cellulitis 3 08/29/24 09/12/24 Rx weeks #22 grams gabapentin 300 mg capsule 300 mg PO TID nerve pain 3 weeks 09/04/24 09/12/24 Rx #63 caps New Prescriptions to Start Prescriptions: Allergies Allergy/AdvReac Type Severity Reaction Status Date / Time cefdinir [CEFDINIR] Allergy Mild Verified 09/12/24 09:59 Sulfa (Sulfonamide Allergy Mild Verified 09/12/24 09:59 Antibiotics) [SULFA (SULFONAMIDE ANTIBIOTICS)] Penicillins [PENICILLINS] Allergy Unknown Verified 09/12/24 09:59 Exam Constitutional Constitutional: no acute distress *Routine HEENT Exam Head: Present normocephalic Eye: Present EOMI and PERRL ENT: Present mucous membranes moist *Routine Neck Exam Neck: Present supple; Absent lymphadenopathy *Routine Respiratory Exam Respiratory: Present CTA bilaterally; Absent rhonchi, stridor, wheezes or crackles *Routine Cardiovascular Exam Cardiovascular: Present RRR *Routine Abdominal Exam Abdominal: Present soft and normoactive bowel sounds; Absent tenderness *Routine Rectal Exam Rectal:: deferred *Routine Genitalia Exam Genitalia:: deferred *Routine Extremities Exam Extremities: Absent cyanosis, clubbing or edema Comments: No redness beyond surgical bandage around foot. Bandage just placed by podiatry, reviewed pictures of foot, mild erythema around surgical incisions. *Routine Skin Exam Skin: Present warm; Absent rash *Routine Neurological Exam Neurological: Present alert, oriented X3 and moving all extremities; Absent altered mental status Assessment and Plan *Assessment and plan (1) Cellulitis of left foot: Status: Acute Category: Medical Code(s): L03.116 - Cellulitis of left lower limb (2) Postoperative dehiscence of skin wound: Status: Acute Qualifiers: Encounter type: subsequent encounter Qualified Code(s): T81.31XD - Disruption of external operation (surgical) wound, not elsewhere classified, subsequent encounter Category: Medical Code(s): T81.31XA - Disruption of external operation (surgical) wound, not elsewhere classified, initial encounter (3) Obesity, Class II, BMI 35-39.9: Status: Acute Category: Medical Code(s): E66.9 - Obesity, unspecified (4) Asthma: Status: Chronic Qualifiers: Asthma severity: moderate Asthma persistence: persistent Category: Medical Code(s): J45.909 - Unspecified asthma, uncomplicated Plan 33-year-old female who presented to podiatry clinic with concern for worsening infection of left foot. Concern for cellulitis at surgical site. Discussed case with podiatry, request admission for IV antibiotics and surgical debridement. I agreed to admit for further management. Initial labs and imaging obtained including x-ray, CBC, CMP, CRP, ESR, Pro-Saman and blood cultures x 2. Problems addressed as follows: Cellulitis of left foot Acquired hallux valgus of left foot status post surgical revision -Initiated on broad-spectrum antibiotics with vancomycin and Levaquin. Continue 2 g every 12 hours vancomycin, 750 mg daily of Levaquin. Monitor for toxicity. -White count elevated at 13-week, improved to 10 today. Repeat CBC, CMP, magnesium ordered for the morning. ESR elevated at 88. Pro-Saman less than 0.03. CRP elevated at 7.5. Kidney function normal with BUN 5, creatinine 0.7. -Podiatry consulted, appreciate their assistance in care. Anticipate debridement tomorrow. -Oxycodone 5 mg / 325 mg every 6 hours as needed for severe breakthrough pain. -Foot x-ray pending to evaluate for osteo or loose hardware. Continue home Wellbutrin 150 mg daily for mood Continue home Bentyl 20 mg 3 times a day for IBS Continue gabapentin 300 mg 3 times a day for neuropathy/nerve pain Continue ibuprofen 600 mg as needed 3 times a day for breakthrough pain Potassium low at 3.3. Replace with 40 mEq p.o. x 3 Full code Holding on anticoagulation pending surgery in the morning Regular diet, n.p.o. at midnight
--- NOTE | 2024-09-12 12:41 | PC.NURSE ---
arrived by w/c from front lobby admissions
[2024-09-12 13:16] LABS: Basophils # 0.2 K/mm3 (0-0.2); Basophils % 1.5 % (0.1-2.0); Eosinophils # 1.4 K/mm3 (0.0-0.4); Eosinophils % 13.7 % (0.1-12.0); Hematocrit 40.1 % (37.0-47.0); Hemoglobin 13.3 g/dL (12.2-16.2); Lymphocytes # 3.2 K/mm3 (0.7-4.5); Lymphocytes % 31.7 % (10-50); Mean Corpuscular HGB Conc 33.3 g/dL (31.8-35.4); Mean Corpuscular Hemoglobin 31.9 pg (27.0-31.2); Mean Corpuscular Volume 95.9 fl (81-99); Mean Platelet Volume 7.8 fl (7.4-10.4); Monocytes # 0.3 K/mm3 (0.1-1.0); Monocytes % 2.6 % (1.7-9.3); Neutrophils # 5.1 K/mm3 (1.8-7.8); Neutrophils % 50.5 % (37.0-80.0); Platelet Count 381 K/mm3 (142-424); Red Blood Count 4.18 M/mm3 (4.20-5.40); Red Cell Distribution Width 13.6 % (11.5-17.5)
[2024-09-12] MEDS: VANCOMYCIN CONSULT REQUEST 1 EACH NOTAPPLIC (13:28)
[2024-09-12] MEDS: LEVOFLOXACIN/D5W 750 MG/150 ML 750 MG/150 ML PIGGYBACK 100 MG IV (13:35)
[2024-09-12 13:36] LABS: Albumin Level 4.5 g/dl (3.5-5.0); Chloride 105 mmol/L (98-107); Sodium 141 mmol/L (136-145)
--- NOTE | 2024-09-12 13:38 | P.CONS_ITS ---
History of Present Illness *Admission Date: 09/12/24 *Reason for visit:: Left foot cellulitis *History of present illness: Patient is a 33-year-old female who underwent a left Lapidus bunionectomy with calcaneal autograft bone harvest on 07/12/24. Surgery was routine and uncomplicated. Postoperative course was complicated by patient's history of smoking. She did have cellulitis and early wound dehiscence which resolved with oral antibiotics and local wound care. Once patient started bathing/soaking the foot she had recurrence of open wound with cellulitis, unresolved with Keflex, doxycycline, topical mupirocin ointment, topical gentamicin. Last week 09/05/2024 at her office visit she had continued cellulitis so infection labs were done which showed elevated white count and labs consistent with cellulitis. A CT was ordered to rule out abscess, effusion nonunion and hardware failure. The CT was performed of the left foot 09/08/24 and report was Hardware was intact with no evidence of loosening, arthrodesis intact and no soft tissue mass or fluid collections to the left foot. During her scheduled office visit today she was unwell, c/o N/V/F, although she was afebrile. Also c/o jaw pain, ear pain and sore throat with worsening left foot pain and swelling. [facility] Disclaimer: The information contained in this section may have been updated after the patient was seen, as this information can be updated by other users. 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 History of 2019 novel coronavirus disease (COVID-19) Asthma Recurrent pneumonia Surgical History History of removal of skin mole History of carpal tunnel surgery of right wrist History of tubal ligation History of cholecystectomy History of tonsillectomy Family History Other Asthma COPD (chronic obstructive pulmonary disease) Diabetes Heart disease Hypertension Social History Smoking Status: Current every day smoker tobacco type: cigarettes packs per day: 1 second hand exposure: Yes alcohol intake: never substance use type: denies use current occupational status: other Travel in the last 8 weeks: None housing: house Review of Systems Review of Systems Review of systems (narrative): 14 point review of systems performed, pertinent positives and negatives as per HPI Constitutional Constitutional: Reports system reviewed and no additional complaints, except as documented Eyes Eyes: Reports system reviewed and no additional complaints, except as documented ENT Ears, Nose, Mouth, and Throat: Reports system reviewed and no additional complaints, except as documented Comments: jaw pain *Cardiovascular Cardiovascular: Reports system reviewed and no additional complaints, except as documented *Respiratory Respiratory: Reports system reviewed and no additional complaints, except as documented *Gastrointestinal Gastrointestinal: Reports system reviewed and no additional complaints, except as documented *Genitourinary Genitourinary: Reports system reviewed and no additional complaints, except as documented *Musculoskeletal Musculoskeletal: Reports system reviewed and no additional complaints, except as documented Integumentary/Breasts Skin/Breast: Reports system reviewed and no additional complaints, except as documented *Neurologic Neurologic: Reports system reviewed and no additional complaints, except as documented Psychiatric Psychiatric: Reports system reviewed and no additional complaints, except as documented Meds Home Medications and Allergies Home Medications ?Medication ?Instructions ?Recorded ?Confirmed ?Type dicyclomine 20 mg tablet 20 mg PO TID 05/04/22 09/12/24 History baclofen 10 mg tablet 10 mg PO DAILY 03/02/24 09/12/24 History cholecalciferol (vitamin D3) 50 50 mcg PO DAILY 03/02/24 09/12/24 History mcg (2,000 unit) tablet (Vitamin D3) cyanocobalamin (vitamin B-12) 1,000 mcg PO DAILY 03/02/24 09/12/24 History 1,000 mcg tablet furosemide 20 mg tablet 20 mg PO DAILY 03/02/24 09/12/24 History potassium chloride 20 mEq 20 meq PO DAILY 03/02/24 09/12/24 History tablet,extended release iron fum,pscplx 125 mg-folic acid 1 cap PO DAILY 05/04/24 09/12/24 History 1 mg-vit C 40 mg-niacin 3 mg capsule (Iron Folate-F) pyridoxine (vitamin B6) 100 mg 100 mg PO DAILY 05/04/24 09/12/24 History tablet bupropion HCl 150 mg tablet,12 hr 150 mg PO DAILY 06/29/24 09/12/24 History sustained-release ibuprofen 600 mg tablet 600 mg PO TID PRN pain 30 days #90 07/11/24 09/12/24 Rx tabs ondansetron 4 mg disintegrating 4 mg PO Q6H nausea and vomiting 07/11/24 09/12/24 Rx tablet #30 tabs pravastatin 80 mg tablet 80 mg PO DAILY 08/07/24 09/12/24 History mupirocin 2 % topical ointment 1 applic topical BID cellulitis 3 08/29/24 09/12/24 Rx weeks #22 grams gabapentin 300 mg capsule 300 mg PO TID nerve pain 3 weeks 09/04/24 09/12/24 Rx #63 caps New Prescriptions to Start Prescriptions: Allergies Allergy/AdvReac Type Severity Reaction Status Date / Time cefdinir [CEFDINIR] Allergy Mild Verified 09/12/24 09:59 Sulfa (Sulfonamide Allergy Mild Verified 09/12/24 09:59 Antibiotics) [SULFA (SULFONAMIDE ANTIBIOTICS)] Penicillins [PENICILLINS] Allergy Unknown Verified 09/12/24 09:59 Exam (Inpt) Vital signs and Labs for Last 24 Hours: Temp Pulse Resp BP Pulse Ox O2 Del Method 98.4 F 80 19 143/80 H 96 Room Air 09/12/24 12:24 09/12/24 12:24 09/12/24 12:24 09/12/24 12:24 09/12/24 12:24 09/12/24 12:24 Laboratory Results - last 24 hr 09/12/24 12:55: WBC 10.0, RBC 4.18 L, Hgb 13.3, Hct 40.1, MCV 95.9, MCH 31.9 H, MCHC 33.3, RDW 13.6, Plt Count 381, MPV 7.8, Neut % (Auto) 50.5, Lymph % (Auto) 31.7, [place] % (Auto) 2.6, Eos % (Auto) 13.7 H, Baso % (Auto) 1.5, Neut # (Auto) 5.1, Lymph # (Auto) 3.2, [place] # (Auto) 0.3, Eos # (Auto) 1.4 H, Baso # (Auto) 0.2 I & O for Labs for Last 24 Hours: Intake & Output 11/0309/11/24 09/12/24 09/13/24 10:59 11:59 11:59 11:59 Weight 228 lb Constitutional: Present no acute distress and obese Head: Present normocephalic Neck: Present normal inspection Respiratory: Present normal respiratory effort and able to speak in complete sentences Cardiac: Present posterior tibial pulses present and pedal pulses present GI: Present soft Rectal (female): Present deferred (female): Present deferred Extremities: Present normal inspection Comment:: 09/12/24: Left foot s/p Lapidus: sutures previously removed. Pain and swelling at sx site. Skin peeling to medial 1st MTPJ and dorsal 1st MCJ incisions. Wound dehiscence distal to 1st MTPJ incision is open wound. Worsening katharine wound erythema noted. No ascending cellulitis, purulence. Wound x2: sharp excisional full-thickness debridement with 15 blade through skin, subq. No exposed deep fascia or bone. Post: Left dorsal medial foot: 50% brown eschar scab, 50% yellow fibrotic, 3.2 x 0.9 x 0.2cm. Left medial 1st MTPJ incision: 20% brown eschar, 60% yellow eschar, 20% granular, 1.5 x 0.4 x 0.2cm. Neuro: Present Motor Function Intact, Sensory Function Intact, oriented x 3, tone normal and moves all extremities Ankle: bilateral: normal inspection Feet/Toes: left: swelling, left: tenderness and left: wound Inspection: Present infection Pulses: L dorsalis pedis pulse: normal, R dorsalis pedis pulse: normal, L posterior tibial pulse: normal and R posterior tibial pulse: normal CFT: normal: CFT Results Labs 09/12/24 12:55 09/12/24 12:55 Labs: Abnormal lab results 09/12/24 Range/Units 12:55 RBC 4.18 L (4.20-5.40) M/mm3 MCH 31.9 H (27.0-31.2) pg Eos % (Auto) 13.7 H (0.1-12.0) % Eos # (Auto) 1.4 H (0.0-0.4) K/mm3 H & H 09/12/24 Range/Units 12:55 Hgb 13.3 (12.2-16.2) g/dL Hct 40.1 (37.0-47.0) % All other labs normal. Diagnostic results Ankle/Foot x-ray: report reviewed and image reviewed Assessment and Plan *Assessment and plan (1) Cellulitis of left foot: Status: Acute Category: Medical Code(s): L03.116 - Cellulitis of left lower limb (2) Postoperative dehiscence of skin wound: Status: Acute Qualifiers: Encounter type: subsequent encounter Qualified Code(s): T81.31XD - Disruption of external operation (surgical) wound, not elsewhere classified, subsequent encounter Category: Medical Code(s): T81.31XA - Disruption of external operation (surgical) wound, not elsewhere classified, initial encounter (3) Obesity, Class II, BMI 35-39.9: Status: Acute Category: Medical Code(s): E66.9 - Obesity, unspecified Plan Surgery, 07/12/24: s/p left Lapidus bunionectomy, first MTPJ capsulorrhaphy, calcaneal autograft bone harvest Intraop Specimens: Left 1st MTPJ: Benign calcified fibrous tissue with chronic inflammation 08/29/24, labs: wbc 13.1, esr 28, crp 6.5, cr 0.7, gfr 96, glucose 107, albumin 3.7 09/05/24, left foot WCx: NGF 09/12/24, labs: wbc 10.0, esr 88, crp 7.5, cr 0.8, gfr 83, glucose 102, albumin 4.5 09/12/24: POV #8, POD #8w, 6d -seen in office today -wound is more red and there is increased size, drainage and pain to site -discussed CT from 09/08/24 wnl: no OM, no abscess, no hardware loosening -discussed outpt mgmt vs admission with IV abx and sx for debridement and deep cultures -as pt has failed several rounds of outpt abx and local wound care, with labs last week having elevated wbc, esr, crp we decided on admission Plan: discuss with Dr Begum, Hospitalist -new labs: cbc, cmp, esr, crp today -new left foot x-rays: negative for OM, abscess or HW failure -NWB to left foot -plan for surgery tomorrow: 09/13/24: left foot wound debridement, possible application of wound vac -NPO after midnight Pre-op: Patient is a 33-year-old female who underwent left Lapidus bunionectomy on 07/12/24. Patient had a relatively uneventful surgery with no intraoperative complications. Postoperatively she did develop cellulitis and had a wound which was treated with oral antibiotics and local wound care. Several weeks later she developed new and worsening cellulitis which is failed several weeks of local wound care, wound debridements and both oral and topical antibiotic therapy. New images were discussed with the patient. We discussed conservative versus surgical treatment options. We discussed conservative care including continued oral vs IV antibiotics and local wound care versus surgical incision and drainage. Patient understands that they could have wound healing complications including delayed healing and infection. We discussed that if the wound does not heal, it is possible that they may need further debridement. Patient understands if infection spreads into the bone, it may warrant proximal amputation and could result in further loss of digits, loss of partial foot or loss of leg. We discussed the risks and benefits in great detail. Discussed possibility of hardware removal in the future or need for another surgery for delayed primary wound closure. Other surgical risks include: prolonged pain and swelling, further infection requiring oral or IV antibiotics, delay in healing of soft tissue or bone, nerve or blood vessel damage, CRPS/RSD, DVT, anesthesia complications, and even . All questions answered. Patient verbalized understanding. Consent obtained.
[2024-09-12 13:39] LABS: Alanine Aminotransferase 20 U/L (12-78); Albumin/Globulin Ratio 1.2 (1.1-1.8); Alkaline Phosphatase 131 U/L (38-126); Aspartate Amino Transferase 48 U/L (14-36); Bilirubin,Total 0.5 mg/dl (0.2-1.3); Blood Urea Nitrogen 3 mg/dl (7-17); Carbon Dioxide 28 mmol/L (22.0-30.0); Creatinine Clearance Estimated 163 mL/min (50-200); Estimated Glomerular Filt Rate 83 ml/min (>60); GFR (African American) 100 ML/MIN (>60); Globulin 3.8 g/dL (1.3-3.2); Total Protein,Serum 8.3 g/dl (6.3-8.2)
[2024-09-12 13:40] LABS: Calcium 9.1 mg/dl (8.4-10.2); Glucose 102 mg/dl (74-100)
[2024-09-12 13:46] LABS: C-Reactive Protein 7.5 mg/L (0-4)
--- NOTE | 2024-09-12 14:08 | EXP.PHA.CONS ---
Pharmacy Consult Date: 09/12/24 Time: 14:09 Referring provider: DR CONNER Reason for Consult:: VANCOMYCIN DOSING CONSULT Allergies Allergy/AdvReac Type Severity Reaction Status Date / Time cefdinir [CEFDINIR] Allergy Mild Verified 09/12/24 09:59 Sulfa (Sulfonamide Allergy Mild Verified 09/12/24 09:59 Antibiotics) [SULFA (SULFONAMIDE ANTIBIOTICS)] Penicillins [PENICILLINS] Allergy Unknown Verified 09/12/24 09:59 Home Medications ?Medication ?Instructions ?Recorded ?Confirmed ?Type dicyclomine 20 mg tablet 20 mg PO TID 05/04/22 09/12/24 History albuterol sulfate 90 mcg/actuation 1 puff inhalation Q6HP PRN soa 03/02/24 09/12/24 History aerosol inhaler baclofen 10 mg tablet 10 mg PO DAILY 03/02/24 09/12/24 History cholecalciferol (vitamin D3) 50 50 mcg PO DAILY 03/02/24 09/12/24 History mcg (2,000 unit) tablet (Vitamin D3) cyanocobalamin (vitamin B-12) 1,000 mcg PO DAILY 03/02/24 09/12/24 History 1,000 mcg tablet fluticasone propionate 44 1 puff inhalation Q6HP PRN soa 03/02/24 09/12/24 History mcg/actuation HFA aerosol inhaler furosemide 20 mg tablet 20 mg PO DAILY 03/02/24 09/12/24 History potassium chloride 20 mEq 20 meq PO DAILY 03/02/24 09/12/24 History tablet,extended release iron fum,pscplx 125 mg-folic acid 1 cap PO DAILY 05/04/24 09/12/24 History 1 mg-vit C 40 mg-niacin 3 mg capsule (Iron Folate-F) pyridoxine (vitamin B6) 100 mg 100 mg PO DAILY 05/04/24 09/12/24 History tablet bupropion HCl 150 mg tablet,12 hr 150 mg PO DAILY 06/29/24 09/12/24 History sustained-release ibuprofen 600 mg tablet 600 mg PO TID PRN pain 30 days #90 07/11/24 09/12/24 Rx tabs ondansetron 4 mg disintegrating 4 mg PO Q6H nausea and vomiting 07/11/24 09/12/24 Rx tablet #30 tabs budesonide-formoterol HFA 160 2 puff inhalation BID 07/20/24 09/12/24 History mcg-4.5 mcg/actuation aerosol inhaler (Symbicort) pravastatin 80 mg tablet 80 mg PO 08/07/24 09/12/24 History tramadol 50 mg tablet 50 mg PO Q6H PRN pain 7 days #28 08/07/24 09/12/24 Rx tabs lidocaine 5 % topical ointment 1 applic topical BID PRN pain 30 08/15/24 09/12/24 Rx days #50 grams doxycycline hyclate 100 mg capsule 100 mg PO BID wound 10 days #20 08/29/24 09/12/24 Rx caps mupirocin 2 % topical ointment 1 applic topical BID cellulitis 3 08/29/24 09/12/24 Rx weeks #22 grams gabapentin 300 mg capsule 300 mg PO TID nerve pain 3 weeks 09/04/24 09/12/24 Rx #63 caps New Prescriptions to Start Prescriptions: Height: 1.63 m Weight: 103.419 kg Laboratory Results:: Laboratory Results - last 24 hr 09/12/24 12:55: WBC 10.0, RBC 4.18 L, Hgb 13.3, Hct 40.1, MCV 95.9, MCH 31.9 H, MCHC 33.3, RDW 13.6, Plt Count 381, MPV 7.8, Neut % (Auto) 50.5, Lymph % (Auto) 31.7, [place] % (Auto) 2.6, Eos % (Auto) 13.7 H, Baso % (Auto) 1.5, Neut # (Auto) 5.1, Lymph # (Auto) 3.2, [place] # (Auto) 0.3, Eos # (Auto) 1.4 H, Baso # (Auto) 0.2, Sodium 141, Potassium 3.0 L, Chloride 105, Carbon Dioxide 28, Anion Gap 11.0, BUN 3 L, Creatinine 0.80, Estimated Creat Clear 163, Estimated GFR 83, Est GFR ( Amer) 100, Glucose 102 H, Calcium 9.1, Total Bilirubin 0.5, AST 48 H, ALT 20, Alkaline Phosphatase 131 H, C-Reactive Protein 7.5 H, Total Protein 8.3 H D, Albumin 4.5, Globulin 3.8 H, Albumin/Globulin Ratio 1.2 Medical History: Medical History (Updated 09/05/24 @ 14:20 by Stacey Hernandez DPM) Abnormal chest xray Allergic rhinitis, unspecified Moderate persistent asthma Dyspnea on exertion Cough [id number] syndrome manifesting as chronic dyspnea History of 2019 novel coronavirus disease (COVID-19) Asthma Recurrent pneumonia Assessment and Plan Assessment and plan all Dx Assessment and Plan for all problems:: Pharmacokinetic dosing service Objective: Age: 33 yo Serum creatinine: 0.8 mg/dL Height: 64.2 Inches Weight (kg): 103.419 Diagnosis: CELLULITIS Assessment: IBW (kg): 55.16 Dosing wt(kg): 103.419 Estimated Creatinine clearance (ml/min): 117.6 CRCL method: Cockcroft and Gault using adjusted body weight Drug selected: Vancomycin Vd (liters): 72.4 (factor used: 0.7 L/kg) Abel (hr-1): 0.102 Half life (hrs): 6.80 CLvanco=?? 7.385 L/hr Recommended dose: 2000 mg Interval: 12 hrs Infusion time (hrs): 2.0 Predicted peak (mcg/mL): 35.4 Predicted trough (mcg/mL): 12.77 Total body weight is being used for vancomycin dosing. Recommendations: Give Vancomycin 2000 mg q 12 hrs with an expected Cpeak of 35.4 mcg/ml and an expected Ctrough of 12.77 mcg/ml AUC 0-24 /SOTO Data: SOTO 0.5 mcg/mL:?? AUC/SOTO:? 1083.3 SOTO 1.0 mcg/mL:?? AUC/SOTO:? 541.6 --------- SOTO 1.5 mcg/mL:?? AUC/SOTO:? 361.1 SOTO 2.0 mcg/mL:?? AUC/SOTO:? 270.8 Thank you for the consult
[2024-09-12 14:15] LABS: Procalcitonin < 0.030 ng/mL (0.0-2.0)
[2024-09-12 14:37] LABS: Erythrocyte Sedimentation Rate 88 mm/hr (0-20)
[2024-09-12] MEDS: TRAMADOL 50MG TABLET 50 MG PO (14:59)
[2024-09-12 16:00] VITALS: BP 137/82; PULSE 79; RESP 14; TEMP 36.6; O2SAT 100
[2024-09-12] MEDS: VANCOMYCIN HCL 2,000 MG in 0.9 % SODIUM CHLORIDE 250 ML 125 MG IV (16:09)
[2024-09-12 16:27] LABS: Adenovirus,PCR Not Detected (NotDetected); Bordetella Pertussis Not Detected (NotDetected); Chlamydophila Pneumoniae, PCR Not Detected (NotDetected); Coronavirus 19, PCR Not Detected (NotDetected); Coronavirus 229E Not Detected (NotDetected); Coronavirus NL63 Not Detected (NotDetected); Coronavirus OC43 Not Detected (NotDetected); Coronovirus HKU1,PCR Not Detected (NotDetected); Human Metapneumovirus Not Detected (NotDetected); Influenza A, PCR Not Detected (NotDetected); Influenza AH1, 2009 Not Detected (NotDetected); Influenza AH1, PCR Not Detected (NotDetected); Influenza AH3,PCR Not Detected (NotDetected); Influenza B, PCR Not Detected (NotDetected); Mycoplasma Pneumoniae, PCR Not Detected (NotDetected); Parainfluenza 1, PCR Not Detected (NotDetected); Parainfluenza 2, PCR Not Detected (NotDetected); Parainfluenza 3, PCR Not Detected (NotDetected); Parainfluenza 4, PCR Not Detected (NotDetected); Respiratory Syncytial Virus Not Detected (NotDetected); Rhinovirus/Enterovirus Not Detected (NotDetected)
[2024-09-12 17:54] LABS: Strep Scrn Group A (Rapid) Negative (Negative)
[2024-09-12] MEDS: OXYCODONE 5MG W/APAP 325MG TABLET 1 EACH PO (18:26)
[2024-09-12 20:00] VITALS: BP 133/64; PULSE 76; RESP 18; TEMP 37.1; O2SAT 97
[2024-09-12] MEDS: GABAPENTIN 300MG CAPSULE 300 MG PO (20:43)
[2024-09-12] MEDS: DICYCLOMINE 10MG CAPSULE 20 MG PO (20:43)
[2024-09-12] MEDS: POTASSIUM CHLORIDE 20MEQ TAB 40 MEQ PO (20:43)
[2024-09-12] MEDS: IBUPROFEN 600 MG TABLET PO (23:33)
[2024-09-13] VITALS (14 sets, daily range): BP systolic 104–152; BP diastolic 59–95; PULSE 72–100; RESP 16–22; TEMP 36.4–36.9; O2SAT 92–98; BMI 40.1
[2024-09-13] MEDS: OXYCODONE 5MG W/APAP 325MG TABLET 1 EACH PO ×3 (04:05→21:40)
[2024-09-13] MEDS: VANCOMYCIN HCL 2,000 MG in 0.9 % SODIUM CHLORIDE 250 ML 125 MG IV ×2 (05:00→18:16)
--- NOTE | 2024-09-13 05:56 | PC.NURSE ---
Patient is alert and oriented x4. Patient was observed to have occasional periods of resting with her eyes closed, but she has been awake for the majority of the night. She has complained of earaches and pain within her left foot, both of which have been treated per MAR with reported relief. A warm washrag was provided to the patient per request to soothe the dry skin on her toes open to air from the wrap. DESIREE wrap remains in place to her left foot and intact. Her left leg has been marked for her podiatry procedure this morning. She has scattered bruises on her arms from being stuck during her stay. She has received her scheduled medications and IV antibiotic per JAN. She has been using a scooter at the bedside to avoid weight-bearing on her affected foot to go to the bathroom; she reported voiding a couple times this shift. She was given a cup of [place] jello and a turkey sandwich for bedtime snacks prior to midnight; she has remained NPO since then. At this time, she is resting supine in bed and listening to music. Vital signs have been stable this shift. No acute changes noted thus far. Call light within reach.
--- NOTE | 2024-09-13 06:18 | PC.NURSE ---
Addendum entered by Karen Roy RN 09/13/24 06:51: A new IV was inserted into her right upper arm via ultrasound. Vancomycin infusion was resumed at this time. Addendum entered by Karen Roy RN 09/13/24 06:36: Jason Goncalves RN is at the bedside to perform an ultrasound-guided IV insertion. Original Note: During vancomycin infusion (started at 05:00), patient starting complaining of burning pain in her arm at around 06:10. The site was slightly swollen. Infusion was stopped and IV site was assessed. I attempted to flush the line, patient winced, and resistance was met. Patient's IV site had appeared to be blown. IV was removed in her left antecubital. Patient requested to have a new IV inserted into her arm via ultrasound-guide due to previous failed attempts and her history of fragile, bad veins. Jason Goncalves RN ([place]) was paged to request an ultrasound-guided IV at this time. She stated that she will be back to the floor in about 15 minutes with the machine. Vancomycin infusion will be resumed once IV access is regained.
--- NOTE | 2024-09-13 06:56 | EXP.ORTH.PN ---
Subjective *Date: 09/13/24 *Time: 08:59 Interval history: 09/13/24: Patient resting in bed awake this morning, looks and feels some better after getting the IV antibiotics. Left foot cellulitis improving and has not exceeded the markings. Surgical consent has been obtained and placed on patient's chart this morning Ortho Exam (Inpt) Vital signs and Labs for Last 24 Hours: Temp Pulse Resp BP Pulse Ox O2 Del Method 98.1 F 72 18 138/77 98 Room Air 09/13/24 03:58 09/13/24 03:58 09/13/24 03:58 09/13/24 03:58 09/13/24 03:58 09/13/24 03:58 Laboratory Results - last 24 hr 09/12/24 12:55: WBC 10.0, RBC 4.18 L, Hgb 13.3, Hct 40.1, MCV 95.9, MCH 31.9 H, MCHC 33.3, RDW 13.6, Plt Count 381, MPV 7.8, Neut % (Auto) 50.5, Lymph % (Auto) 31.7, [place] % (Auto) 2.6, Eos % (Auto) 13.7 H, Baso % (Auto) 1.5, Neut # (Auto) 5.1, Lymph # (Auto) 3.2, [place] # (Auto) 0.3, Eos # (Auto) 1.4 H, Baso # (Auto) 0.2, ESR 88 H, Sodium 141, Potassium 3.0 L, Chloride 105, Carbon Dioxide 28, Anion Gap 11.0, BUN 3 L, Creatinine 0.80, Estimated Creat Clear 163, Estimated GFR 83, Est GFR ( Amer) 100, Glucose 102 H, Calcium 9.1, Total Bilirubin 0.5, AST 48 H, ALT 20, Alkaline Phosphatase 131 H, C-Reactive Protein 7.5 H, Total Protein 8.3 H D, Albumin 4.5, Globulin 3.8 H, Albumin/Globulin Ratio 1.2, Procalcitonin < 0.030 09/12/24 15:07: Chlamy pneumoniae PCR Not detected, Adenovirus (PCR) Not detected, B. pertussis DNA (PCR) Not detected, Coronavirus OC43 (PCR) Not detected, Coronavirus HKU1 (PCR) Not detected, Coronavirus 229E (PCR) Not detected, SARS-CoV-2 (PCR) Not detected, Coronavirus NL63 (PCR) Not detected, Human Metapneumovir PCR Not detected, Influenza A (H1) PCR Not detected, Influ A (H1N1/09) PCR Not detected, Influenza A (H3) PCR Not detected, Influenza Type A (PCR) Not detected, Influenza Type B (PCR) Not detected, M. pneumoniae (PCR) Not detected, Parainfluenza 1 (PCR) Not detected, Parainfluenza 2 (PCR) Not detected, Parainfluenza 3 (PCR) Not detected, Parainfluenza 4 (PCR) Not detected, RSV (PCR) Not detected, Entero/Rhino (PCR) Not detected 09/12/24 15:57: Group A Strep Rapid Negative I & O for Labs for Last 24 Hours: Intake & Output 09/10/24 09/11/24 09/12/24 09/13/24 22:59 23:59 23:59 23:59 Intake Total 320 / 320 720 / 720 Output Total 0 / 0 0 / 0 Balance 320 / 320 720 / 720 Weight 228 lb 235 lb 3.2 oz Constitutional: Present no acute distress and cooperative Head: Present normocephalic Eyes: Present as per HPI Neck: Present trachea midline Respiratory: Present normal respiratory effort and able to speak in complete sentences Cardiac: Present posterior tibial pulses present and pedal pulses present Comments:: deferred Rectal (female): Present deferred (female): Present deferred Extremities: Present tenderness, normal capillary refill and edema (Cellulitis left foot, left foot postoperative dehiscence of skin/wound); Absent calf tenderness Skin: Present erythema (Left foot cellulitis/postoperative dehiscence of skin/wound) and normal turgor Neuro: Present Motor Function Intact, oriented x 3, tone normal and moves all extremities Ankle: left: swelling (1+ left foot edema, cellulitis), left: tenderness (Left foot dehiscence of postoperative dehiscence of skin/wound) and left: wound (Skin peeling to medial first MTPJ and dorsal first MCJ incisions) Comment:: 09/12/24: Left foot s/p Lapidus: sutures previously removed. Pain and swelling at sx site. Skin peeling to medial 1st MTPJ and dorsal 1st MCJ incisions. Wound dehiscence distal to 1st MTPJ incision is open wound. Worsening katharine wound erythema noted. No ascending cellulitis, purulence. Wound x2: sharp excisional full-thickness debridement with 15 blade through skin, subq. No exposed deep fascia or bone. Post: Left dorsal medial foot: 50% brown eschar scab, 50% yellow fibrotic, 3.2 x 0.9 x 0.2cm. Left medial 1st MTPJ incision: 20% brown eschar, 60% yellow eschar, 20% granular, 1.5 x 0.4 x 0.2cm. 09/13/24-plan for surgery left foot wound debridement, possible application of wound VAC today, surgical consent obtained. Feet/Toes: left: swelling, left: tenderness (Left foot postoperative dehiscence of skin/wound) and left: wound Assessment and Plan *Assessment and plan (1) Cellulitis of left foot: Status: Acute Category: Medical Code(s): L03.116 - Cellulitis of left lower limb (2) Postoperative dehiscence of skin wound: Status: Acute Qualifiers: Encounter type: subsequent encounter Qualified Code(s): T81.31XD - Disruption of external operation (surgical) wound, not elsewhere classified, subsequent encounter Category: Medical Code(s): T81.31XA - Disruption of external operation (surgical) wound, not elsewhere classified, initial encounter (3) Obesity, Class II, BMI 35-39.9: Status: Acute Category: Medical Code(s): E66.9 - Obesity, unspecified Plan Surgery, 07/12/24: s/p left Lapidus bunionectomy, first MTPJ capsulorrhaphy, calcaneal autograft bone harvest Intraop Specimens: Left 1st MTPJ: Benign calcified fibrous tissue with chronic inflammation 08/29/24, labs: wbc 13.1, esr 28, crp 6.5, cr 0.7, gfr 96, glucose 107, albumin 3.7 09/05/24, left foot WCx: NGF 09/12/24, labs: wbc 10.0, esr 88, crp 7.5, cr 0.8, gfr 83, glucose 102, albumin 4.5 09/13/24: -seen in office 09/12/24,POV #8, POD #8w, 6d -wound has improved some this morning and erythema contained within the markings on her left foot. -patient looks and feels some better this morning, her ears and throat improving. -discussed CT from 09/08/24 wnl: no OM, no abscess, no hardware loosening -discussed outpt mgmt vs admission with IV abx and sx for debridement and deep cultures -as pt has failed several rounds of outpt abx and local wound care, with labs last week having elevated wbc, esr, crp we decided on admission Plan: discuss with Dr Begum, Hospitalist -Patient admitted per hospitalist, podiatry to consult -reviewed labs: 09/12/24 wbc 10.0,esr.88,glucose 102-96,crp. 7.5-4.3, -reviewed eft foot x-rays: negative for OM, abscess or HW failure -NWB to left foot -plan for surgery today: 09/13/24: left foot wound debridement, possible application of wound vac -NPO after midnight; patient to remain n.p.o. until after surgery -all order per Dr. Hernandez Pre-op: Patient is a 33-year-old female who underwent left Lapidus bunionectomy on 07/12/24. Patient had a relatively uneventful surgery with no intraoperative complications. Postoperatively she did develop cellulitis and had a wound which was treated with oral antibiotics and local wound care. Several weeks later she developed new and worsening cellulitis which is failed several weeks of local wound care, wound debridements and both oral and topical antibiotic therapy. New images were discussed with the patient. We discussed conservative versus surgical treatment options. We discussed conservative care including continued oral vs IV antibiotics and local wound care versus surgical incision and drainage. Patient understands that they could have wound healing complications including delayed healing and infection. We discussed that if the wound does not heal, it is possible that they may need further debridement. Patient understands if infection spreads into the bone, it may warrant proximal amputation and could result in further loss of digits, loss of partial foot or loss of leg. We discussed the risks and benefits in great detail. Discussed possibility of hardware removal in the future or need for another surgery for delayed primary wound closure. Other surgical risks include: prolonged pain and swelling, further infection requiring oral or IV antibiotics, delay in healing of soft tissue or bone, nerve or blood vessel damage, CRPS/RSD, DVT, anesthesia complications, and even . All questions answered. Patient verbalized understanding. Consent obtained.
[2024-09-13 07:20] LABS: Alanine Aminotransferase 18 U/L (12-78); Albumin Level 3.4 g/dl (3.5-5.0); Albumin/Globulin Ratio 1.1 (1.1-1.8); Alkaline Phosphatase 104 U/L (38-126); Anion Gap 11.3 mEq/L (5-15); Aspartate Amino Transferase 38 U/L (14-36); Bilirubin,Total 0.4 mg/dl (0.2-1.3); Blood Urea Nitrogen 6 mg/dl (7-17); Calcium 8.3 mg/dl (8.4-10.2); Carbon Dioxide 25 mmol/L (22.0-30.0); Chloride 107 mmol/L (98-107); Creatinine Clearance Estimated 168 mL/min (50-200); Estimated Glomerular Filt Rate 83 ml/min (>60); GFR (African American) 100 ML/MIN (>60); Glucose 96 mg/dl (74-100); Magnesium 1.5 mg/dl (1.6-2.3); Potassium 3.3 mmoL/L (3.5-5.1); Sodium 140 mmol/L (136-145); Total Protein,Serum 6.4 g/dl (6.3-8.2)
[2024-09-13 07:27] LABS: C-Reactive Protein 4.3 mg/L (0-4)
--- NOTE | 2024-09-13 07:51 | HMH.PHAINT1 ---
Pharmacy Intervention Comments: Home medication list verified using list from outpatient pharmacy
[2024-09-13] MEDS: MAGNESIUM SULFATE IN WATER 2 GM/50 ML PIGGYBACK IV ×2 (08:16→16:37)
[2024-09-13] MEDS: buPROPion HCl SR 150MG TAB 150 MG PO ×2 (08:16→21:38)
[2024-09-13] MEDS: FUROSEMIDE 20MG TABLET 20 MG PO (08:16)
[2024-09-13] MEDS: DICYCLOMINE 10MG CAPSULE 20 MG PO ×3 (08:17→21:38)
[2024-09-13] MEDS: GABAPENTIN 300MG CAPSULE 300 MG PO ×3 (08:18→21:38)
[2024-09-13] MEDS: POTASSIUM CHLORIDE 20MEQ TAB 40 MEQ PO ×2 (08:18→14:36)
[2024-09-13 09:07] LABS: Erythrocyte Sedimentation Rate 53 mm/hr (0-20)
[2024-09-13 09:10] LABS: Basophils # 0.1 K/mm3 (0-0.2); Basophils % 1.1 % (0.1-2.0); Eosinophils # 0.9 K/mm3 (0.0-0.4); Eosinophils % 11.2 % (0.1-12.0); Hematocrit 34.3 % (37.0-47.0); Lymphocytes # 2.6 K/mm3 (0.7-4.5); Mean Corpuscular HGB Conc 34.7 g/dL (31.8-35.4); Mean Corpuscular Hemoglobin 33.5 pg (27.0-31.2); Mean Corpuscular Volume 96.5 fl (81-99); Mean Platelet Volume 8.2 fl (7.4-10.4); Monocytes # 0.4 K/mm3 (0.1-1.0); Monocytes % 4.6 % (1.7-9.3); Neutrophils % 50.1 % (37.0-80.0); Platelet Count 331 K/mm3 (142-424); Red Blood Count 3.55 M/mm3 (4.20-5.40); Red Cell Distribution Width 13.4 % (11.5-17.5); White Blood Count 7.9 K/mm3 (4.8-10.8)
[2024-09-13 09:14] LABS: Hemoglobin 11.9 g/dL (12.2-16.2)
--- NOTE | 2024-09-13 09:37 | CARE MANAGER ---
Addendum entered by Parris Francis RN 09/14/24 09:06: Patient had surgery yesterday. Discussed any discharge needs. Patient states that her will do dressing changes and is aware of how to dress it. No needs identified at this time. Original Note: Spoke with patient this morning. She states that she currently has everything she needs and will not have any needs at discharge that she can think of at this time. Will continue to follow. BRAULIO Cabello
--- NOTE | 2024-09-13 12:00 | PC.NURSE ---
pt taken down to OR
--- NOTE | 2024-09-13 12:07 | P.PNANES_ITS ---
[facility] Disclaimer: The information contained in this section may have been updated after the patient was seen, as this information can be updated by other users. 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 History of 2019 novel coronavirus disease (COVID-19) Asthma Recurrent pneumonia Surgical History History of removal of skin mole History of carpal tunnel surgery of right wrist History of tubal ligation History of cholecystectomy History of tonsillectomy Family History Other Asthma COPD (chronic obstructive pulmonary disease) Diabetes Heart disease Hypertension Social History Smoking Status: Current every day smoker tobacco type: cigarettes packs per day: 1 second hand exposure: Yes alcohol intake: never substance use type: denies use current occupational status: other Travel in the last 8 weeks: None housing: house [facility] Anesthesia Checklist Patient Identification Patient Identification: Arm Band and Verbal (Name & ) Structural Data Admitted From: Home Planned Operative Procedure/s: L. foot wound debridement Consent for Planned Operative Procedure(s) Verified: Yes Verified Documents: Surgical Consent and History and Physical NPO Status Verified Time NPO: 00:00 Chart Verification Results Verified: HCG Additional verifications Anesthesia Reactions: Yes (anxiety) Hx Blood Transfusions: No Blood Transfusion Reaction: No Airway Assessment Mallampati Score:: Class II C-Spine Mobility Assessed: Yes TMJ Mobility Assessed: Yes Dentition: Dentures-poor fitting (Removed) Neurological Assessment Level of Consciousness: Awake Hx Seizures: No Numbness or tingling in extremities: No Anesthesia Plan Anesthesia Risk discussed: Yes Anesthesia Plan: Verified ASA Class: II Anesthesia Type: MAC
[2024-09-13 12:18] LABS: Urine Pregnancy, HCG Qual. Negative (Negative)
[2024-09-13] MEDS: CLINDAMYCIN PHOSPHATE/D5W 900 MG/50 ML PIGGYBACK 100 MG (12:40)
[2024-09-13] MEDS: VANCOMYCIN 1000MG VIAL 1000 MG (12:45)
[2024-09-13] MEDS: BUPIVACAINE 0.5% 10ML VIAL 50 MG (12:45)
[2024-09-13] MEDS: GENTAMICIN 80 MG/2 ML VIAL (12:45)
[2024-09-13] MEDS: SODIUM CHLORIDE IRRIG SOLUTION 3,000 ML 100 ML IR (12:48)
[2024-09-13] MEDS: MORPHINE 2MG/ML SYRINGE 2 MG (13:40)
--- NOTE | 2024-09-13 13:43 | P.PNANES_ITS ---
[facility] Anesthesia Record Part I Anesthesia Record I Intake, IV Amount: 400 Hydration: Adequate Estimated blood loss (mL): 19 Urine output (mL): 0 Blood Products used (#): none Blood Pressure: 128/89 SaO2: 98 Pulse Rate: 100 Airway Patency: Patent Respiratory Rate: 22 Temperature: 98.1 F Patient is:: Drowsy and Stable Stable to PACU at:: 13:35
[2024-09-13] MEDS: MORPHINE 2MG/ML SYRINGE 2 MG IV ×4 (13:45→14:00)
--- NOTE | 2024-09-13 13:48 | P.OP_ITS ---
Date of procedure: 09/13/24 Pre-op Diagnosis:: Left foot cellulitis Left foot open wound Postop wound dehiscence Post-op Diagnosis:: Same Procedure performed:: Left foot wide excisional wound debridement x 2 Left foot I&D Bone biopsy Delayed primary closure Surgeon:: Stacey Hernandez DPM PASSENGER VESSEL CHEF:: Best Pineda Anesthesia: local (10 cc 0.5% Marcaine plain) and LMA Estimated blood loss (mL): 20 Clinical Note:: Patient is a 33-year-old female who underwent left Lapidus bunionectomy on 07/12/24. Patient had a relatively uneventful surgery with no intraoperative complications. Postoperatively she did develop cellulitis and had a wound which was treated with oral antibiotics and local wound care. Several weeks later she developed new and worsening cellulitis which is failed several weeks of local wound care, wound debridements and both oral and topical antibiotic therapy. New images were discussed with the patient. We discussed conservative versus surgical treatment options. We discussed conservative care including continued oral vs IV antibiotics and local wound care versus surgical incision and drainage. Patient understands that they could have wound healing complications including delayed healing and infection. We discussed that if the wound does not heal, it is possible that they may need further debridement. Patient understands if infection spreads into the bone, it may warrant proximal amputation and could result in further loss of digits, loss of partial foot or loss of leg. We discussed the risks and benefits in great detail. Discussed possibility of hardware removal in the future or need for another surgery for delayed primary wound closure. Other surgical risks include: prolonged pain and swelling, further infection requiring oral or IV antibiotics, delay in healing of soft tissue or bone, nerve or blood vessel damage, CRPS/RSD, DVT, anesthesia complications, and even . All questions answered. Patient verbalized understanding. Written consent obtained. Operative findings:: Left foot s/p Lapidus with redness and swelling at previous surgery sites. Skin peeling to medial 1st MTPJ and dorsal 1st MCJ incisions. Wound dehiscence distal to 1st MTPJ incision. Hurricane style incision was made around both wounds separately. Incision and drainage full-thickness through skin, subcu into deep fascia approximately 1 cm deep. No maile purulence expressed. Some thickening t o the distal first MTPJ capsule. Wound x2: sharp excisional full-thickness debridement with 15 blade through skin, subq to deep fascia. There was no exposed bone. Post debridement: Left dorsal medial foot wound was 100% granular, 4.0 x 1.3 x 0.5cm. A separate incision was made over the hardware and wound explored to the level of the bone. No deep purulence, sinus tracking or hardware involvement noted. Post debridement: Left medial 1st MTPJ incision: 100% granular, 1.7 x 0.4 x 0.4cm. An incision was made over the first metatarsal head full-thickness to the level of the bone. Open bone biopsy performed to remove a piece of the met head for bone culture and pathology. Bone was hard and intact with no obvious signs of osteomyelitis noted. Overall the foot had some cellulitis which was improving with the IV antibiotics. No deep signs of tissue or bone involvement. Based on intraop findings, patient will not require PICC line with IV antibiotics. Assuming wound is stable dressing changed tomorrow, patient can be discharged home with oral antibiotics. Operative note:: On this date and time patient was deemed an appropriate surgical candidate. With informed consent signed, the patient was taken to the operating theater room. The patient was positioned supine. LMA anesthesia was induced. No tourniquet used. IV Clinda given. The left lower extremity was prepped and draped in normal sterile fashion. Left foot wide excisional wound debridement x2, ulcer biopsy: Attention was directed to the distal medial and dorsal left foot over previous surgery incision sites where open wounds were noted. See operative findings for measurements. There was no periwound maceration. The skin edges and wounds were debrided with 15' blade, some bleeding noted. All nonviable fibrotic scar tissue, nonviable tissue and biofilm was debrided. HurriCaine style incision mapped the ulcer/wounds which were then excised full thickness and sent as a soft tissue biopsy to culture and pathology. See operative findings for details. Left foot I&D: A separate incision was made over the left dorsal proximal midfoot full-thickness down to the level of the hardware/bone. No purulence or evidence of hardware involvement. Wound flushed with gentamicin irrigation. Left foot open bone biopsy: A stab incision was made over distal first MTPJ fu ll-thickness down to the level of the first metatarsal head. Rongeur used to remove a piece of the met head, sent for bone biopsy and culture. No obvious signs of osteo noted. Left foot delayed primary closure: Post debridement, there was some bleeding was noted. Granular base was noted. No purulence or signs of infection noted. Next 3L of gentamicin irrigation was used to flush the wound with pulse lavage. The wound was reexplored and no signs of infection noted. The skin edges were able to be reapproximated because the ulcer and some of the nonviable fibrotic scar tissue had been resected. Vancomycin powder inserted into the wound sites. Vicryl used to reapproximate subcutaneous tissue. There was an area of higher tension at the dorsal medial Lapidus incision site proximally. Suturegard x1 used across the wound at this area of highest tension to prevent wound dehiscence. 2-0 Nylon was used to close skin in an interrupted simple and Donati Allgower suture fashion. Skin edges were fully reapproximated. Skin cleansed. Vancomycin powder applied along the incisions. Xeroform, betadine soaked gauze, dry sterile dressing applied to left foot. The patient tolerated the procedure and anesthesia well, without complications. She was transferred to recovery vital signs stable and neurovascular status intact before being transferred back to the floor. Materials: 2-0 Nylon, Suturegard (Hemigard) x1, 1g vancomycin powder Plan: Transfer back to floor Maintain dressing clean dry and intact to left foot. NWB to LLE in fracture boot with walker/RKS. Continue IV antibiotics. Plan for podiatry dressing change in a.m. If surgical site is stable, patient will likely be able to be discharged to home tomorrow with a course of oral antibiotic. No intraoperative findings of osteomyelitis that would warrant PICC/IV antibiotics. Condition: stable Disposition: floor Specimens:: Left foot wound culture Left first metatarsal bone culture Left ulcer tissue culture Left ulcer tissue pathology Left first metatarsal bone path Complications:: None
--- NOTE | 2024-09-13 14:03 | PC.NURSE ---
med administration of meds from [id number] delayed due to pt being in surgery.
[2024-09-13] MEDS: KETOROLAC 30MG/ML VIAL 30 MG IV (14:05)
[2024-09-13] MEDS: HYDROMORPHONE 2MG/ML SYRINGE 1 MG IV (14:05)
--- NOTE | 2024-09-13 14:31 | P.PN_ITS ---
Subjective *Date: 09/13/24 *Time: 21:19 Interval history: Patient taken for debridement of foot today. Seen after procedure. Appears comfortable, complaining of some burning in her left foot. Mild nausea that improved with Zofran. Afebrile and on room air. Medical Exam Vital signs and Labs for Last 24 Hours: Vital Signs Temp Pulse Pulse Resp BP BP Pulse Ox 09/13/24 14:15 98.2 F 80 18 119/70 98 09/13/24 14:05 98.2 F 92 H 18 136/78 98 09/13/24 13:55 98.2 F 93 H 18 120/67 95 09/13/24 13:45 98.1 F 100 H 22 128/89 09/13/24 13:45 98.2 F 94 H 18 140/95 H 97 09/13/24 13:35 98.2 F 97 H 18 128/89 98 09/13/24 11:00 09/13/24 09:00 09/13/24 08:00 09/13/24 07:25 97.6 F 78 16 152/79 H 97 09/13/24 07:00 09/13/24 05:00 09/13/24 03:58 98.1 F 72 18 138/77 98 09/13/24 03:00 09/13/24 01:00 09/12/24 23:00 09/12/24 21:00 09/12/24 20:00 76 18 97 09/12/24 20:00 98.7 F 76 18 133/64 97 09/12/24 18:30 09/12/24 17:00 09/12/24 16:00 97.8 F 79 14 137/82 100 09/12/24 15:00 O2 Del Method 09/13/24 14:15 Room Air 09/13/24 14:05 Room Air 09/13/24 13:55 Room Air 09/13/24 13:45 09/13/24 13:45 Room Air 09/13/24 13:35 Room Air 09/13/24 11:00 Room Air 09/13/24 09:00 Room Air 09/13/24 08:00 Room Air 09/13/24 07:25 Room Air 09/13/24 07:00 Room Air 09/13/24 05:00 Room Air 09/13/24 03:58 Room Air 09/13/24 03:00 Room Air 09/13/24 01:00 Room Air 09/12/24 23:00 Room Air 09/12/24 21:00 Room Air 09/12/24 20:00 Room Air 09/12/24 20:00 Room Air 09/12/24 18:30 Room Air 09/12/24 17:00 Room Air 09/12/24 16:00 Room Air 09/12/24 15:00 Room Air Intake and Output 09/12/24 09/13/24 09/13/24 23:59 07:59 15:59 Intake Total 320 / 1040 720 / 1360 640 / 1360 Output Total 0 / 0 0 / 0 0 / 0 Balance 320 / 1040 720 / 1360 640 / 1360 Intake: Intake, Oral Amount 320 / 1040 720 / 720 Intake, Total IV Amount 640 / 640 Vancomycin HCl 2,000 mg In 0.9 240 / 240 % Sodium Chloride 250 ml @ 125 mls/hr IV Q12H [facility] Rx#:[id number] Output: Output, Urine Amount 0 / 0 0 / 0 0 / 0 Other: Number of Unmeasured Voids 1 1 Weight 106.685 kg Patient Weight 09/13/24 23:59 Weight 106.685 kg Laboratory Results - last 24 hr 09/12/24 12:55: ESR 88 H 09/12/24 15:07: Chlamy pneumoniae PCR Not detected, Adenovirus (PCR) Not detected, B. pertussis DNA (PCR) Not detected, Coronavirus OC43 (PCR) Not detected, Coronavirus HKU1 (PCR) Not detected, Coronavirus 229E (PCR) Not detected, SARS-CoV-2 (PCR) Not detected, Coronavirus NL63 (PCR) Not detected, Human Metapneumovir PCR Not detected, Influenza A (H1) PCR Not detected, Influ A (H1N1/09) PCR Not detected, Influenza A (H3) PCR Not detected, Influenza Type A (PCR) Not detected, Influenza Type B (PCR) Not detected, M. pneumoniae (PCR) Not detected, Parainfluenza 1 (PCR) Not detected, Parainfluenza 2 (PCR) Not detected, Parainfluenza 3 (PCR) Not detected, Parainfluenza 4 (PCR) Not detected, RSV (PCR) Not detected, Entero/Rhino (PCR) Not detected 09/12/24 15:57: Group A Strep Rapid Negative 09/13/24 06:48: WBC 7.9, RBC 3.55 L, Hgb 11.9 L D, Hct 34.3 L, MCV 96.5, MCH 33.5 H, MCHC 34.7, RDW 13.4, Plt Count 331, MPV 8.2, Neut % (Auto) 50.1, Lymph % (Auto) 33.0, [place] % (Auto) 4.6, Eos % (Auto) 11.2, Baso % (Auto) 1.1, Neut # (Auto) 4.0, Lymph # (Auto) 2.6, [place] # (Auto) 0.4, Eos # (Auto) 0.9 H, Baso # (Auto) 0.1, ESR 53 H, Sodium 140, Potassium 3.3 L, Chloride 107, Carbon Dioxide 25, Anion Gap 11.3, BUN 6 L D, Creatinine 0.80, Estimated Creat Clear 168, Estimated GFR 83, Est GFR ( Amer) 100, Glucose 96, Calcium 8.3 L, Magnesium 1.5 L, Total Bilirubin 0.4, AST 38 H, ALT 18, Alkaline Phosphatase 104, C-Reactive Protein 4.3 H D, Total Protein 6.4, Albumin 3.4 L D, Globulin 3.0, Albumin/Globulin Ratio 1.1 09/13/24 12:02: Urine HCG, Qual Negative I & O for Labs for Last 24 Hours: Intake & Output 09/10/24 09/11/24 09/12/24 09/13/24 22:59 23:59 23:59 23:59 Intake Total 320 / 1040 1360 / 1360 Output Total 0 / 0 0 / 0 Balance 320 / 1040 1360 / 1360 Weight 103.419 kg 106.685 kg Microbiology Reports for the Last 24 Hours: Microbiology 09/12/24 13:30 Blood Blood Culture - Preliminary NO GROWTH AFTER 24 HOURS 09/12/24 13:30 Blood Blood Culture - Preliminary NO GROWTH AFTER 24 HOURS Constitutional: Present no acute distress, morbidly obese, chronically ill appearing and cooperative Head: Present atraumatic and normocephalic ENT: Present normal exam Respiratory: Present normal respiratory effort; Absent rhonchi, wheezes or crackles Cardiac: Present Reg Rate and Rhythm GI: Present soft and normal bowel sounds; Absent distention or tenderness Extremities: Present normal inspection and full ROM; Absent edema Comment:: Left foot and postsurgical wrap. Neurovascularly intact in toes. Skin: Present intact; Absent erythema Neuro: Present Grossly Intact, alert, awake, oriented x 3 and moves all extremities Assessment and Plan *Assessment and plan (1) Cellulitis of left foot: Status: Acute Category: Medical Code(s): L03.116 - Cellulitis of left lower limb (2) Postoperative dehiscence of skin wound: Status: Acute Qualifiers: Encounter type: subsequent encounter Qualified Code(s): T81.31XD - Disruption of external operation (surgical) wound, not elsewhere classified, subsequent encounter Category: Medical Code(s): T81.31XA - Disruption of external operation (surgical) wound, not elsewhere classified, initial encounter (3) Obesity, Class II, BMI 35-39.9: Status: Acute Category: Medical Code(s): E66.9 - Obesity, unspecified (4) Asthma: Status: Chronic Qualifiers: Asthma persistence: persistent Asthma severity: moderate Category: Medical Code(s): J45.909 - Unspecified asthma, uncomplicated Plan 33-year-old female who presented to podiatry clinic with concern for worsening infection of left foot. Concern for cellulitis at surgical site. Discussed case with podiatry, request admission for IV antibiotics and surgical debridement. I agreed to admit for further management. Patient take for debridement today by podiatry. Tolerated surgery well. Problems addressed as follows: Cellulitis of left foot Acquired hallux valgus of left foot status post surgical revision -Initiated on broad-spectrum antibiotics with vancomycin and Levaquin. Continue 2 g every 12 hours vancomycin, 750 mg daily of Levaquin. Monitor for toxicity. -White count improved today to 7.9. Kidney function normal BUN 6, creatinine 0.8. Potassium 3.3, magnesium 1.5. Replacing IV today. -CRP remains elevated at 4.3, ESR 53. -Discussed case with podiatry, taken for debridement. Tolerated procedure well. No concern for deeper infection. Will monitor overnight. If does well, anticipate discharge tomorrow on oral antibiotics. -Oxycodone 5 mg / 325 mg every 6 hours as needed for severe breakthrough pain. -Foot x-ray reviewed with no signs of osteomyelitis. Repeat CBC, CMP, ESR, CRP, magnesium ordered for the morning Continue home Wellbutrin 150 mg daily for mood Continue home Bentyl 20 mg 3 times a day for IBS Continue gabapentin 300 mg 3 times a day for neuropathy/nerve pain Continue ibuprofen 600 mg as needed 3 times a day for breakthrough pain Full code Holding on anticoagulation pending surgery in the morning Regular diet
[2024-09-13] MEDS: LEVOFLOXACIN/D5W 750 MG/150 ML 750 MG/150 ML PIGGYBACK 100 MG IV (14:36)
--- NOTE | 2024-09-13 15:12 | XR_ITS ---
FINAL REPORT CLINICAL HISTORY: post op COMPARISON: None FINDINGS: LEFT FOOT: Three views of the left foot were obtained. There are postoperative changes of fusion of the first tarsal metatarsal joint, with 2 orthopedic screw plates and screws bridging that articulation. There is no acute fracture or dislocation. IMPRESSION: Postoperative changes of fusion of the first tarsal metatarsal joint, as described above. Reviewed, Interpreted and Dictated by Issac Mckay III, MD Transcribed by Kyra Nogueira Authenticated and [facility]
[2024-09-13] MEDS: ONDANSETRON 4MG/2ML VIAL 4 MG IV (15:34)
--- NOTE | 2024-09-13 15:55 | PC.NURSE ---
per Sheila in pacu, post op vitals for this pt are initial, & q10 x3. see post op vitals in chart.
--- NOTE | 2024-09-13 19:29 | PC.NURSE ---
pt sitting up in bed. pt had procedure to clean wound on left foot this afternoon. dressing applied by DR to left foot- c/d/i. pt complained of pain and nausea once- treated per jan. pt has tolerated po intake well. abx given per jan. pt aware of non weight bearing status. vss. no complaints or needs at this time. call light within reach.
[2024-09-14 00:29] VITALS: BP 113/64; PULSE 67; RESP 18; TEMP 36.7; O2SAT 96
[2024-09-14] MEDS: TRAMADOL 50MG TABLET 50 MG PO ×2 (01:02→06:48)
[2024-09-14 04:00] VITALS: BP 119/71; PULSE 75; RESP 16; TEMP 37.2; O2SAT 97; BMI 40.2
[2024-09-14] MEDS: OXYCODONE 5MG W/APAP 325MG TABLET 1 EACH PO ×2 (04:08→10:43)
[2024-09-14] MEDS: VANCOMYCIN HCL 2,000 MG in 0.9 % SODIUM CHLORIDE 250 ML 125 MG IV (04:08)
--- NOTE | 2024-09-14 05:32 | PC.NURSE ---
Addendum entered by Karen Roy RN 09/14/24 06:41: A 24G IV was inserted into the right hand by Josette Bangura RN and Josette Navarro RN. Vancomycin infusion will be resumed accordingly. Addendum entered by Karen Roy RN 09/14/24 06:13: I stuck the patient twice. IV insertion was unsuccessful both times. Original Note: Vancomycin infusion was started at 04:08. At around 05:30, the pump was alarming distal occlusion. Infusion was stopped and IV site was assessed. Patient stated that her arm was starting to feel a little funny. I attempted to flush the line (saline would not go through), patient winced, and resistance was met. There was no blood return at all. Patient's IV site had appeared to be failed. The IV was removed in her right upper arm. I will attempt to regain IV access per patient's allowance. Vancomycin infusion will be resumed once IV access is regained.
--- NOTE | 2024-09-14 06:51 | EXP.ORTH.PN ---
Subjective *Date: 09/14/24 *Time: 09:47 Interval history: 09/14/24: Doing very well this morning completed breakfast denies any nausea vomiting states restful night, still having some burning sensation to her foot. Patient to continue taking gabapentin while at home. Ortho Exam (Inpt) Vital signs and Labs for Last 24 Hours: Temp Pulse Resp BP Pulse Ox O2 Del Method 98.9 F 75 16 119/71 97 Room Air 09/14/24 04:00 09/14/24 04:00 09/14/24 04:00 09/14/24 04:00 09/14/24 04:00 09/14/24 04:00 Laboratory Results - last 24 hr 09/13/24 06:48: WBC 7.9, RBC 3.55 L, Hgb 11.9 L D, Hct 34.3 L, MCV 96.5, MCH 33.5 H, MCHC 34.7, RDW 13.4, Plt Count 331, MPV 8.2, Neut % (Auto) 50.1, Lymph % (Auto) 33.0, [place] % (Auto) 4.6, Eos % (Auto) 11.2, Baso % (Auto) 1.1, Neut # (Auto) 4.0, Lymph # (Auto) 2.6, [place] # (Auto) 0.4, Eos # (Auto) 0.9 H, Baso # (Auto) 0.1, ESR 53 H, Sodium 140, Potassium 3.3 L, Chloride 107, Carbon Dioxide 25, Anion Gap 11.3, BUN 6 L D, Creatinine 0.80, Estimated Creat Clear 168, Estimated GFR 83, Est GFR ( Amer) 100, Glucose 96, Calcium 8.3 L, Magnesium 1.5 L, Total Bilirubin 0.4, AST 38 H, ALT 18, Alkaline Phosphatase 104, C-Reactive Protein 4.3 H D, Total Protein 6.4, Albumin 3.4 L D, Globulin 3.0, Albumin/Globulin Ratio 1.1 09/13/24 12:02: Urine HCG, Qual Negative I & O for Labs for Last 24 Hours: Intake & Output 09/11/24 09/12/24 09/13/24 09/14/24 23:59 23:59 23:59 23:59 Intake Total 320 / 320 1500 / 1500 360 / 360 Output Total 0 / 0 0 / 0 Balance 320 / 320 1500 / 1500 360 / 360 Weight 228 lb 235 lb 3.2 oz 235 lb 14.4 oz Microbiology Reports for the Last 24 Hours: Microbiology 09/13/24 Unknown Foot,Left - Other Bone Culture - Preliminary 09/13/24 Unknown Foot,Left Gram Stain - Preliminary 09/13/24 Unknown Foot,Left - Left Gram Stain - Preliminary 09/13/24 Unknown Foot,Left - Left Gram Stain - Preliminary 09/12/24 13:30 Blood Blood Culture - Preliminary NO GROWTH AFTER 24 HOURS 09/12/24 13:30 Blood Blood Culture - Preliminary NO GROWTH AFTER 24 HOURS Constitutional: Present no acute distress and cooperative Head: Present normocephalic Eyes: Present as per HPI Neck: Present trachea midline Respiratory: Present normal respiratory effort and able to speak in complete sentences Cardiac: Present posterior tibial pulses present and pedal pulses present Comments:: deferred Rectal (female): Present deferred (female): Present deferred Extremities: Present tenderness, normal capillary refill and edema (Cellulitis left foot, left foot postoperative site erythema improving); Absent calf tenderness Skin: Present erythema (Left foot cellulitis/postoperative site improving, sutures intact) and normal turgor Neuro: Present Motor Function Intact, oriented x 3, tone normal and moves all extremities Ankle: left: swelling (Trace left foot edema, cellulitis; improving), left: tenderness (Left foot postoperative site) and left: wound (S/p left foot wide excisional wound debridement x 2, left foot I&D, bone biopsy, delayed primary closure) Comment:: 09/12/24: Left foot s/p [place]: sutures previously removed. Pain and swelling at sx site. Skin peeling to medial 1st MTPJ and dorsal 1st MCJ incisions. Wound dehiscence distal to 1st MTPJ incision is open wound. Worsening katharine wound erythema noted. No ascending cellulitis, purulence. Wound x2: sharp excisional full-thickness debridement with 15 blade through skin, subq. No exposed deep fascia or bone. Post: Left dorsal medial foot: 50% brown eschar scab, 50% yellow fibrotic, 3.2 x 0.9 x 0.2cm. Left medial 1st MTPJ incision: 20% brown eschar, 60% yellow eschar, 20% granular, 1.5 x 0.4 x 0.2cm. 09/13/24-plan for surgery left foot wound debridement, possible application of wound VAC today, surgical consent obtained. 09/14/24-S/P: left foot wide excisional wound debridement x 2 left foot I&D, bone biopsy, delayed primary closure. Feet/Toes: left: swelling, left: tenderness (Left foot s/p wide excisional wound debridement x 2, I&D, bone biopsy, delayed primary closure) and left: wound Comments:: Overall less redness and swelling. Mild pain to distal medial 1st MTPJ. Assessment and Plan *Assessment and plan (1) Cellulitis of left foot: Status: Acute Category: Medical Code(s): L03.116 - Cellulitis of left lower limb (2) Postoperative dehiscence of skin wound: Status: Acute Qualifiers: Encounter type: subsequent encounter Qualified Code(s): T81.31XD - Disruption of external operation (surgical) wound, not elsewhere classified, subsequent encounter Category: Medical Code(s): T81.31XA - Disruption of external operation (surgical) wound, not elsewhere classified, initial encounter (3) Obesity, Class II, BMI 35-39.9: Status: Acute Category: Medical Code(s): E66.9 - Obesity, unspecified Plan 09/14/24: POD #1 Sx. 09/13/24-left foot wide excisional wound debridement x 2, left foot I&D, bone biopsy, delayed primary closure Plan: Pain dressing clean dry and intact to left foot NWB to LLE in fracture boot with walker/RKS. Continue IV antibiotics. Dressing changed today with xeroform over sutures, betadine gauze, dry 4x4,kerlix, jenny wrap. Plan for her to change again in 3 days, she has instructions and supplies. surgical site is stable, patient will likely be able to be discharged to home today with a course of oral antibiotic Clindamycin 300mg po tid x 10 days, Levofloxacin 750mg po daily x 10 days. No intraoperative findings of osteomyelitis that would warrant PICC/IV antibiotics. Review labs: WBC 7.9-6.5 trending downward, ESR 53?123, glucose 95, CRP 4.3?8.0-still elevated will continue oral antibiotics after discharge. All orders per Dr. 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 Overall foot looks better-less redness and swelling. Discussed betadine dressing change in 3 days (she has supplies). eRx Oxy 5mg prn pain. eRx Clinda, Levo x10d (09/15-09/25/24).
--- NOTE | 2024-09-14 06:52 | PC.NURSE ---
Patient is alert and oriented x4. Patient was observed to have occasional rest periods but has been awake for the majority of the night. She has complained of burning in her left foot and throbbing pain throughout the shift of which has been treated with percocet and tramadol per JAN. She has reported some relief after each pain medication administrations. Patient has maintained elevation of her left foot post debridement. Dressing remains dry and intact. Patient has used her scooter at bedside to go to the bathroom to prevent weight-bearing on her affected foot. She has also received her scheduled medications and resumed vancomycin per JAN (see prior note). Upon auscultation, her lung sounds were clear, bowel sounds were active, and S1/S2 heart sounds could be heard. Vital signs have remained stable with soft blood pressures. She was given chips for a bedtime snack and a sandwich to eat this morning; she has drank plenty of isabelle-8 and water. At this time, she is resting in bed listening to music. No acute changes noted thus far. Call light within reach.
[2024-09-14 07:05] LABS: Basophils # 0.1 K/mm3 (0-0.2); Basophils % 0.9 % (0.1-2.0); Eosinophils # 0.6 K/mm3 (0.0-0.4); Eosinophils % 9.1 % (0.1-12.0); Hematocrit 33.3 % (37.0-47.0); Lymphocytes # 2.5 K/mm3 (0.7-4.5); Lymphocytes % 37.9 % (10-50); Mean Corpuscular HGB Conc 33.1 g/dL (31.8-35.4); Mean Corpuscular Hemoglobin 31.8 pg (27.0-31.2); Mean Platelet Volume 7.3 fl (7.4-10.4); Monocytes # 0.3 K/mm3 (0.1-1.0); Monocytes % 4.2 % (1.7-9.3); Neutrophils # 3.1 K/mm3 (1.8-7.8); Neutrophils % 47.7 % (37.0-80.0); Platelet Count 317 K/mm3 (142-424); Red Blood Count 3.46 M/mm3 (4.20-5.40); Red Cell Distribution Width 13.1 % (11.5-17.5); White Blood Count 6.5 K/mm3 (4.8-10.8)
[2024-09-14 07:08] LABS: Alanine Aminotransferase 19 U/L (12-78); Albumin Level 3.4 g/dl (3.5-5.0); Albumin/Globulin Ratio 1.3 (1.1-1.8); Alkaline Phosphatase 88 U/L (38-126); Anion Gap 7.6 mEq/L (5-15); Aspartate Amino Transferase 37 U/L (14-36); Bilirubin,Total 0.4 mg/dl (0.2-1.3); Blood Urea Nitrogen 5 mg/dl (7-17); Calcium 7.9 mg/dl (8.4-10.2); Carbon Dioxide 28 mmol/L (22.0-30.0); Chloride 105 mmol/L (98-107); Creatinine Clearance Estimated 169 mL/min (50-200); Estimated Glomerular Filt Rate 83 ml/min (>60); GFR (African American) 100 ML/MIN (>60); Globulin 2.6 g/dL (1.3-3.2); Glucose 95 mg/dl (74-100); Magnesium 2.3 mg/dl (1.6-2.3); Potassium 3.6 mmoL/L (3.5-5.1); Sodium 137 mmol/L (136-145)
[2024-09-14 07:27] VITALS: BP 119/70; PULSE 80; RESP 18; TEMP 36.8; O2SAT 98
--- NOTE | 2024-09-14 07:27 | EXP.ANES.II ---
[facility] Anesthesia Record Part II Anesthesia Record Part II Discharge Time: 14:15 Destination: Second Floor PACU nurse assessment reviewed?: Yes Patient Condition:: Good Anesthesia Complications:: None Swallowing reflex intact?: Yes Airway Patency: Patent Cyanosis?: No Blood Pressure: 119/70 SaO2: 98 Respiratory Rate: 18 Pulse Rate: 80 Temperature: 98.2 F Mental Status: Alert & Oriented Pain level:: 2 Nausea and/or vomitting:: None Intake, IV Amount: 0 Hydration: Adequate
--- NOTE | 2024-09-14 07:31 | EXP.DC.SUM ---
General Admission date:: 09/12/24 Discharge date: 09/14/24 HPI HPI HPI: Ms. Bustillos is a 33-year-old female who presented from podiatry clinic for direct admission due to concern of cellulitis and infection at previous surgical site. She underwent left Lapidus bunionectomy with calcaneal autograft bone harvest on 07/12/24. Surgery was routine and uncomplicated. Postoperative course was complicated by patient's history of smoking. She did have cellulitis and early wound dehiscence which resolved with oral antibiotics and local wound care. She unfortunately had recurrence of cellulitis after beginning soaks of her foot. Cellulitis unresolved with courses of Keflex and doxycycline. Has also used topical mupirocin and gentamicin. Was seen last week in podiatry office with concern for cellulitis. Labs at that time showed mild elevation of ESR and white count of 13. Presents today with persistent redness around wounds. CT performed on 09/08, hardware at that time was intact with no evidence of loosening. Medicine was consulted for admission and further management. She denies any shortness of breath, chest pain, headache. Does complain however of having some nausea and upset stomach. Afebrile in the office but complains of some subjective low-grade fevers. Also having congestion and ear discomfort. Hospital Course Hospital Course Hospital Course: 33-year-old female who presented to podiatry clinic with concern for worsening infection of left foot. Concern for cellulitis at surgical site. Discussed case with podiatry, request admission for IV antibiotics and surgical debridement. I agreed to admit for further management. Patient take for debridement on 05/01. Tolerated procedure well. Patient had improvement in exam. No further signs of infection. Tolerating antibiotics. Will continue at discharge. Podiatry sent antibiotics and pain medication. Stable to discharge home with close follow-up with podiatry as an outpatient. Problems addressed as follows: Cellulitis of left foot Acquired hallux valgus of left foot status post surgical revision -Initiated on broad-spectrum antibiotics with vancomycin and Levaquin. Taken for surgery. Had improvement in her white count. Normal on day of discharge at 6.5. Kidney function normal as well with BUN 5, creatinine 0.8. Tolerated surgery well with no complication. Having improvement in appearance of wounds. Will continue oral antibiotics at discharge with clindamycin and levofloxacin. CRP remains mildly elevated to 8 on day of discharge. ESR bumped postop. Likely reactive to surgical debridement. Patient overall feeling better. Stable to discharge home with close follow-up with podiatry. Continue home Wellbutrin 150 mg daily for mood Continue home Bentyl 20 mg 3 times a day for IBS Continue gabapentin 300 mg 3 times a day for neuropathy/nerve pain Continue ibuprofen 600 mg as needed 3 times a day for breakthrough pain Exam Data for Last 24 hours Vital signs and Labs for Last 24 Hours: Temp Pulse Resp BP Pulse Ox O2 Del Method 98.9 F 75 18 119/71 97 Room Air 09/14/24 04:00 09/14/24 04:00 09/14/24 07:27 09/14/24 04:00 09/14/24 04:00 09/14/24 04:00 Laboratory Results - last 24 hr 09/13/24 06:48: WBC 7.9, RBC 3.55 L, Hgb 11.9 L D, Hct 34.3 L, MCV 96.5, MCH 33.5 H, MCHC 34.7, RDW 13.4, Plt Count 331, MPV 8.2, Neut % (Auto) 50.1, Lymph % (Auto) 33.0, [place] % (Auto) 4.6, Eos % (Auto) 11.2, Baso % (Auto) 1.1, Neut # (Auto) 4.0, Lymph # (Auto) 2.6, [place] # (Auto) 0.4, Eos # (Auto) 0.9 H, Baso # (Auto) 0.1, ESR 53 H 09/13/24 12:02: Urine HCG, Qual Negative 09/14/24 06:41: WBC 6.5, RBC 3.46 L, Hgb 11.0 L, Hct 33.3 L, MCV 96.0, MCH 31.8 H, MCHC 33.1, RDW 13.1, Plt Count 317, MPV 7.3 L, Neut % (Auto) 47.7, Lymph % (Auto) 37.9, [place] % (Auto) 4.2, Eos % (Auto) 9.1, Baso % (Auto) 0.9, Neut # (Auto) 3.1, Lymph # (Auto) 2.5, [place] # (Auto) 0.3, Eos # (Auto) 0.6 H, Baso # (Auto) 0.1, Sodium 137, Potassium 3.6, Chloride 105, Carbon Dioxide 28, Anion Gap 7.6, BUN 5 L, Creatinine 0.80, Estimated Creat Clear 169, Estimated GFR 83, Est GFR ( Amer) 100, Glucose 95, Calcium 7.9 L, Magnesium 2.3 D, Total Bilirubin 0.4, AST 37 H, ALT 19, Alkaline Phosphatase 88, Total Protein 6.0 L, Albumin 3.4 L, Globulin 2.6, Albumin/Globulin Ratio 1.3 I & O for Last 24 hours: Intake & Output 09/11/24 09/12/24 09/13/24 09/14/24 23:59 23:59 23:59 23:59 Intake Total 320 / 1040 1500 / 1860 360 / 360 Output Total 0 / 0 0 / 0 Balance 320 / 1040 1500 / 1860 360 / 360 Weight 103.419 kg 106.685 kg 107.002 kg Microbiology Reports for the Last 24 Hours: Microbiology 09/13/24 Unknown Foot,Left - Other Bone Culture - Preliminary 09/13/24 Unknown Foot,Left Gram Stain - Preliminary 09/13/24 Unknown Foot,Left - Left Gram Stain - Preliminary 09/13/24 Unknown Foot,Left - Left Gram Stain - Preliminary 09/12/24 13:30 Blood Blood Culture - Preliminary NO GROWTH AFTER 24 HOURS 09/12/24 13:30 Blood Blood Culture - Preliminary NO GROWTH AFTER 24 HOURS Constitutional Constitutional: no acute distress, obese, chronically ill appearing and cooperative *Routine HEENT Exam Head: Present normocephalic Eye: Present EOMI and PERRL ENT: Present mucous membranes moist *Routine Neck Exam Neck: Present supple; Absent lymphadenopathy *Routine Respiratory Exam Respiratory: Present CTA bilaterally; Absent rhonchi, wheezes or crackles *Routine Cardiovascular Exam Cardiovascular: Present RRR *Routine Abdominal Exam Abdominal: Present soft and normoactive bowel sounds; Absent tenderness *Routine Rectal Exam Patient deferred: visual exam *Routine Exam Patient deferred: external exam *Routine Extremities Exam Extremities: Absent cyanosis, clubbing or edema Comments: left foot and postsurgical bandage. Wounds clean this morning on dressing change. Suture stable. No drainage. *Routine Skin Exam Skin: Present warm; Absent rash *Routine Neurological Exam Neurological: Present alert, oriented X3 and moving all extremities; Absent altered mental status Results Data Completed and Pending Labs on day of discharge: Labs from last 24 hours 09/14/24 09/13/24 09/13/24 06:41 12:02 06:48 WBC 6.5 7.9 RBC 3.46 L 3.55 L Hgb 11.0 L 11.9 L D Hct 33.3 L 34.3 L MCV 96.0 96.5 MCH 31.8 H 33.5 H MCHC 33.1 34.7 RDW 13.1 13.4 Plt Count 317 331 MPV 7.3 L 8.2 Neut % (Auto) 47.7 50.1 Lymph % (Auto) 37.9 33.0 [place] % (Auto) 4.2 4.6 Eos % (Auto) 9.1 11.2 Baso % (Auto) 0.9 1.1 Neut # (Auto) 3.1 4.0 Lymph # (Auto) 2.5 2.6 [place] # (Auto) 0.3 0.4 Eos # (Auto) 0.6 H 0.9 H Baso # (Auto) 0.1 0.1 ESR 53 H Sodium 137 Potassium 3.6 Chloride 105 Carbon Dioxide 28 Anion Gap 7.6 BUN 5 L Creatinine 0.80 Estimated Creat Clear 169 Estimated GFR 83 Est GFR ( Amer) 100 Glucose 95 Calcium 7.9 L Magnesium 2.3 D Total Bilirubin 0.4 AST 37 H ALT 19 Alkaline Phosphatase 88 Total Protein 6.0 L Albumin 3.4 L Globulin 2.6 Albumin/Globulin Ratio 1.3 Urine HCG, Qual Negative Preliminary micro results at discharge 09/13/24 Unknown Bone Culture - Preliminary Foot,Left - Other 09/13/24 Unknown Gram Stain - Preliminary Foot,Left 09/13/24 Unknown Gram Stain - Preliminary Foot,Left - Left 09/13/24 Unknown Gram Stain - Preliminary Foot,Left - Left 09/12/24 13:30 Blood Culture - Preliminary Blood NO GROWTH AFTER 24 HOURS 09/12/24 13:30 Blood Culture - Preliminary Blood NO GROWTH AFTER 24 HOURS DS: Diagnosis Discharge Diagnosis (1) Cellulitis of left foot: Status: Acute Code(s): L03.116 - Cellulitis of left lower limb (2) Postoperative dehiscence of skin wound: Status: Acute Code(s): T81.31XA - Disruption of external operation (surgical) wound, not elsewhere classified, initial encounter Qualifiers: Encounter type: subsequent encounter Qualified Code(s): T81.31XD - Disruption of external operation (surgical) wound, not elsewhere classified, subsequent encounter (3) Obesity, Class II, BMI 35-39.9: Status: Acute Code(s): E66.9 - Obesity, unspecified (4) Asthma: Status: Chronic Code(s): J45.909 - Unspecified asthma, uncomplicated Qualifiers: Asthma persistence: persistent Asthma severity: moderate Meds Home Medications and Allergies Home Medications ?Medication ?Instructions ?Recorded ?Confirmed ?Type dicyclomine 20 mg tablet 20 mg PO TID 05/04/22 09/12/24 History baclofen 10 mg tablet 10 mg PO TID 03/02/24 09/13/24 History cholecalciferol (vitamin D3) 50 50 mcg PO DAILY 03/02/24 09/12/24 History mcg (2,000 unit) tablet (Vitamin D3) cyanocobalamin (vitamin B-12) 1,000 mcg PO DAILY 03/02/24 09/12/24 History 1,000 mcg tablet furosemide 20 mg tablet 20 mg PO DAILY 03/02/24 09/12/24 History potassium chloride 20 mEq 20 meq PO DAILY 03/02/24 09/12/24 History tablet,extended release iron fum,pscplx 125 mg-folic acid 1 cap PO DAILY 05/04/24 09/12/24 History 1 mg-vit C 40 mg-niacin 3 mg capsule (Iron Folate-F) pyridoxine (vitamin B6) 100 mg 100 mg PO DAILY 05/04/24 09/12/24 History tablet bupropion HCl 150 mg tablet,12 hr 150 mg PO BID 06/29/24 09/13/24 History sustained-release ibuprofen 600 mg tablet 600 mg PO TID PRN pain 30 days #90 07/11/24 09/12/24 Rx tabs pravastatin 80 mg tablet 80 mg PO HS 08/07/24 09/13/24 History mupirocin 2 % topical ointment 1 applic topical BID cellulitis 3 08/29/24 09/12/24 Rx weeks #22 grams gabapentin 300 mg capsule 300 mg PO TID nerve pain 3 weeks 09/04/24 09/12/24 Rx #63 caps clindamycin HCl 300 mg capsule 300 mg PO TID infection 10 days 09/14/24 Rx #30 caps levofloxacin 750 mg tablet 750 mg PO DAILY 10 days #10 tabs 09/14/24 Rx oxycodone 5 mg tablet 5 mg PO Q4HP PRN post op pain 3 09/14/24 Rx days #18 tabs New Prescriptions to Start Prescriptions: clindamycin HCl Best Begum levofloxacin Best Begum oxycodone Best Begum Allergies Allergy/AdvReac Type Severity Reaction Status Date / Time cefdinir [CEFDINIR] Allergy Mild Verified 09/12/24 09:59 Sulfa (Sulfonamide Allergy Mild Verified 09/12/24 09:59 Antibiotics) [SULFA (SULFONAMIDE ANTIBIOTICS)] Penicillins [PENICILLINS] Allergy Unknown Verified 09/12/24 09:59 Discharge Plan Disposition Patient Disposition: Home, Self-Care Condition: Fair Discharge Order Discharge Orders: Discharge Order (Routine); Ordered 09/14/24 Ordered By: Best Begum Follow up Plan Follow up with: Jon Wen DO [Referring] - 09/18/24 9:45 am Stacey Hrenandez DPM [Staff Physician] - 09/21/24 9:15 am Prescriptions/Medication Reconciliation: Continued furosemide 20 mg tablet 20 mg PO DAILY Patient Comments: TAKE 1 TABLET BY MOUTH EVERY DAY potassium chloride 20 mEq tablet extended release 20 meq PO DAILY cholecalciferol (vitamin D3) [Vitamin D3] 50 mcg (2,000 unit) tablet 50 mcg PO DAILY baclofen 10 mg tablet 10 mg PO TID cyanocobalamin (vitamin B-12) 1,000 mcg tablet 1,000 mcg PO DAILY Patient Comments: TAKE 1 TABLET BY MOUTH EVERY DAY mupirocin 2 % ointment 1 applic topical BID 21 Days Qty: 22 1RF Rx Instructions: Apply to affected area up to twice daily dicyclomine 20 mg tablet 20 mg PO TID pyridoxine (vitamin B6) 100 mg tablet 100 mg PO DAILY Iron Folate-F 125-1-40-3 mg capsule 1 cap PO DAILY Rx Instructions: administer between meals bupropion HCl 150 mg tablet sustained-release 12 hr 150 mg PO BID pravastatin 80 mg tablet 80 mg PO HS Patient Comments: TAKE 1 TABLET BY MOUTH EVERY DAY ibuprofen 600 mg tablet 600 mg PO TID PRN (Reason: pain) 30 Days Qty: 90 1RF gabapentin 300 mg capsule 300 mg PO TID 21 Days Qty: 63 0RF clindamycin HCl 300 mg capsule 300 mg PO TID 10 Days Qty: 30 0RF Rx Instructions: administer with large glass of water levofloxacin 750 mg tablet 750 mg PO DAILY 10 Days Qty: 10 0RF Changed oxycodone 5 mg tablet 5 mg PO Q4HP PRN (Reason: post op pain) 3 Days Qty: 18 0RF Problem Reconciliation Problems Reviewed?: Yes Patient Discharge Instructions ACTIVITY: Continue current activity DIET: continue same diet Patient Instructions: Cellulitis, DI for Wound Dehiscence, DI for Debridement of a Wound, Infection, or Burn, DI for Surgical Site Infection Print Language: Chinese Providers Primary Care Provider: Provider,Referral Admit Provider: Best Begum Attending Provider: Best Begum
[2024-09-14 07:39] VITALS: BP 113/69; PULSE 85; RESP 18; TEMP 36.5; O2SAT 97
[2024-09-14 08:14] LABS: Erythrocyte Sedimentation Rate 123 mm/hr (0-20)
[2024-09-14] MEDS: GABAPENTIN 300MG CAPSULE 300 MG PO (08:49)
[2024-09-14] MEDS: IBUPROFEN 600 MG TABLET PO (08:49)
[2024-09-14] MEDS: DICYCLOMINE 10MG CAPSULE 20 MG PO (08:49)
[2024-09-14] MEDS: FUROSEMIDE 20MG TABLET 20 MG PO (08:49)
[2024-09-14] MEDS: buPROPion HCl SR 150MG TAB 150 MG PO (08:49)
[2024-09-14] MEDS: levoFLOXacin 750 MG TABLET PO (10:44)
--- NOTE | 2024-09-15 13:27 | CARE MANAGER ---
Contacted patient related to hospital discharge. She states she is having some nausea, but otherwise is ok. I suggested she reach out to PCP or podiatry to see if she can get something for nausea. She verbalized understanding. She is aware of follow up appointment and has new medication. BRAULIO Cabello
== END 2024-09-14 11:05 | disposition home or self-care (01) | DRG 580 ==
PROVIDERS: Podiatrist; Admitting Provider Internal Medicine Adolescent Medicine; Visit Provider Internal Medicine Adolescent Medicine
PROC: 0QBP0ZX Excision of Left Metatarsal, Open Approach, Diagnostic (ICD-10-PCS; principal; 2024-09-13 12:00)
DX: L03.116 Cellulitis of left lower limb (principal); T81.30XA Disruption of wound, unspecified, initial encounter; T81.31XA Disruption of external operation (surgical) wound, not elsewhere classified, initial encounter; Z68.41 Body mass index [BMI] 40.0-44.9, adult; E66.9 Obesity, unspecified; J45.909 Unspecified asthma, uncomplicated; Y83.9 Surgical procedure, unspecified as the cause of abnormal reaction of the patient, or of later complication, without mention of misadventure at the time of the procedure
CPT/HCPCS: 20240; 97597; 36415; 73630; 80053; 81025; 83735; 84145; 85025; 85651; 86140; 87040; 87070; 87205; 87265; 87430; 87486; 87581; 87632; 87635; 88304; J0736; J1171; J1580; J1885; J1956; J2270; J2405; J3010; J3370; J3475

== ENCOUNTER 2024-10-16 09:54 | Outpatient (CLI) | payer OTHER, SELFPAY ==
--- NOTE | 2024-10-16 10:04 | XR_ITS ---
FINAL REPORT CLINICAL HISTORY: Pain of Foot COMPARISON: 09/13/2024 FINDINGS: LEFT FOOT Three views of the left foot demonstrate postoperative changes from fusion of the first tarsometatarsal joint. There is no acute fracture or dislocation. There is mild degenerative change. The soft tissues are unremarkable. IMPRESSION: Postoperative and degenerative changes without acute bony abnormality. Reviewed, Interpreted and Dictated by Issac Mckay III, MD Transcribed by Nicolle Rasmussen Authenticated and . [facility]
== END 2024-10-16 23:59 | disposition home or self-care (01) ==
LOC: RAD 09:55
PROVIDERS: PCP Student in an Organized Health Care Education/Training Program; Visit Provider Podiatrist
DX: M79.672 Pain in left foot (principal)
CPT/HCPCS: 73630

== ENCOUNTER 2024-10-23 09:55 | Outpatient (RCR) | payer OTHER, SELFPAY ==
--- NOTE | 2024-10-23 11:55 | HMH.PTOPEV ---
PT Outpatient Evaluation Rehab PT Outpatient Evaluation Start: 10/23/24 10:00 Freq: Status: Active Protocol: Document 10/23/24 11:26 TERRY (Rec: 10/23/24 11:54 TERRY [id number]) E-signed By Ralph Gagnon, PT Outpatient Therapy Subjective History Subjective History This is the initial PT eval for Tiffany Bustillos, 34 yowf who presents with continued pain, stiffness, weakness, and swelling after L foot surgery . She had initial surgery 03/01 with L bunionectomy, then a second surgery for I&D due to possible post-op infection performed 09/13/24. She reports continued pain with WBing or pressure to the medial side of the L foot. She also reports intermittent burning pain and decreased sensation around her incisions . She reports difficulty ambulating which limits her functional mobility. She has PMH of tibial torsion and a recent diagnosis of Sjogren's syndrome. New diagnosis of cancer in past 12 No months? Chief Complaint Pain,Stiff,Weakness Symptom Type Burning Symptoms Relieved By Rest/Positioning Symptoms Aggravated By Standing,Walking Prior Functional Limitations None Current Functional Limitations Housework,Standing,Walking, Stairs Symptom Description Intermittent,Activity Dependent Level of pain today (0-10) 0 Pain scale - at its best (0-10) 0 Pain scale - at its worst (0-10) 3 Ankle/Foot Eval Gait Observation General Gait Pattern Observation Antalgic Gait,Decrease Stride Lngth (L) Assistive Device Ambulation Assistive Device Rolling Walker Palpation Tenderness left Ankle/Foot Palpation Findings Tenderness Ankle/Foot Palpation Overall Comment Medial L foot 2/4 ROM Ankle/Foot Dorsiflexion w/Knee Extended 0-10 Active Range Motion (degrees) Ankle/Foot Plantar Flexion Active Range 0-30 of Motion (degrees) Ankle/Foot Eversion Active Range of 0-10 Motion (degrees) Ankle/Foot Inversion Active Range of 0-18 Motion (degrees) Great Toe Metatarsophalangeal Extension 0-25 Passive Range Motion (degrees) MMT Ankle Dorsiflexion Strength Grade 4 Good Ankle Plantarflexion Strength Grade 4 Good Foot Eversion Strength Grade 4 Good Foot Inversion Strength Grade 4 Good Lower Extremity Functional Index Activities Today, do you or would you have any difficulty at all with: a.Any of your usual work, housework or Moderate difficulty school activities b. Your usual hobbies, recreational or Quite a bit of difficulty sporting activities c. Getting into or out of the bath A little bit of difficulty d. Walking between rooms A little bit of difficulty e. Putting on your shoes or socks Extreme difficulty or unable to perform activity f. Squatting Moderate difficulty g. Lifting an object, like a bag of A little bit of difficulty groceries from the floor h. Performing light activities around A little bit of difficulty your home i. Performing heavy activities around Quite a bit of difficulty your home j. Getting into or out of a car A little bit of difficulty k. Walking 2 blocks Quite a bit of difficulty l. Walking a mile Extreme difficulty or unable to perform activity m. Going up or down 10 stairs (about 1 Quite a bit of difficulty flight of stairs) n. Standing for 1 hour Extreme difficulty or unable to perform activity o. Sitting for 1 hour Extreme difficulty or unable to perform activity p. Running on even ground Extreme difficulty or unable to perform activity q. Running on uneven ground Extreme difficulty or unable to perform activity r. Making sharp turns while running fast Extreme difficulty or unable to perform activity s. Hopping Extreme difficulty or unable to perform activity t. Rolling over in bed No difficulty LEFI Score Lower Extremity Functional Index Score 27 Outpatient Therapy Assessment Impairments Problems/Impairmments Palpation Tenderness,Impaired Range of Motion,Impaired Strength,Impaired Endurance, Impaired Gait Pattern,Impaired Walking,Impaired Standing, Impaired Household Care, Impaired Stair Climbing, Increased Edema,Subjective C/O Pain,Impaired Self Care/Self Management Prognosis Rehab Potential Good Comment Pt presents with continued post-op edema, increased fascial tightness throughout the L foot, decreased L foot and ankle ROM, and continued pain with full WBing on the L LE. Skilled therapy is indicated to improve all of these deficiencies in order to return pt to [facility]. Clinical Impression Consistent with Diagnosis Yes Short Term Goals Number of Weeks 4 Decreased Palpation Tenderness Yes: L foot 1/4 Increase Range of Motion Yes: L ankle by 3 deg all dir Increase Strength Yes: L ankle 4+/5 throughout Improve Gait Pattern with Assistive Yes: No antalgic gait Device Improve LEFI Score Yes: at least 35 Decrease Subjective C/O Pain Yes: 2/10 at worst L foot Patient to be Ind w/ HEP Yes Assisted Goals Number of Weeks 8 Decreased Palpation Tenderness Yes: 0/4 L foot Increase Range of Motion Yes: L ankle WNL throughout Increase Strength Yes: L ankle 5/5 throughout Improve Gait Pattern without Assistive Yes: No gait abnormalities Device without AD Improve Ability For Household Care Yes: without increased pain Improve LEFI Score Yes: at least 45 Decrease Subjective C/O Pain Yes: 0/10 L foot with ADLs Patient to be Ind w/ Advanced HEP Yes Outpatient Therapy Plan of Care Treatment Plan May Include Therapeutic Exercise Including Home Yes Exercise Program Manual Therapy Techniques Yes Neuromuscular Re-education Yes Therapeutic Activities to Return to Yes Previous Functional/Work Level Gait Training Yes ADL/Self Care Education Yes Thermal Modalities Yes Electrical Stimulation Yes Ultrasound/Phonophoresis Yes Orthotics/Bracing/Splinting Yes Vasopneumatic Compression Pump Yes Manual Lymphatic Drainage Yes Eval/Re-Eval Yes Frequency Times per week 2-3 Duration Number of Weeks 8 Addendums This patient is a candidate for social No or vocational rehab? Patient/Guardian verbally acknowledges Yes understanding of treatment program and consents to further treatment? Patient/Guardian verbally acknowledges Yes understanding of diagnosis, prognosis and goals for treatment? Eval Complexity PT Charges 50903 - High Complexity Shoulder/Elbow Eval Shoulder Objective Measurements Elbow Objective Measurements PHYSICIAN CERTIFICATION: I certify the specified therapy services for Tiffany Bustillos are required, authorized, and reviewed every 30 days.
== END 2024-10-23 23:59 | disposition home or self-care (01) ==
LOC: PT 09:55
PROVIDERS: PCP Student in an Organized Health Care Education/Training Program; Visit Provider Podiatrist
DX: M79.672 Pain in left foot (principal); R60.9 Edema, unspecified; Z98.890 Other specified postprocedural states
CPT/HCPCS: 97110; 97140; 97163

== ENCOUNTER 2024-12-11 08:05 | Outpatient (CLI) | payer OTHER, SELFPAY ==
--- NOTE | 2024-12-11 08:09 | XR_ITS ---
FINAL REPORT CLINICAL HISTORY: s/p foot surgery COMPARISON: 10/16/2024 FINDINGS: LEFT FOOT Three views of the left foot demonstrate a sideplate and screws securing the first tarsometatarsal joint. There is no acute fracture or dislocation. The visualized joint spaces are normally aligned. There is soft tissue edema over the dorsum of the foot measuring about 1.6 cm IMPRESSION: Postoperative changes and soft tissue edema without acute bony abnormality. Reviewed, Interpreted and Dictated by Alejandro Brown MD Transcribed by Nicolle Rasmussen Authenticated and [facility]
== END 2024-12-11 23:59 | disposition home or self-care (01) ==
LOC: RAD 08:06
PROVIDERS: PCP Student in an Organized Health Care Education/Training Program; Visit Provider Podiatrist
DX: Z98.890 Other specified postprocedural states (principal); M79.672 Pain in left foot
CPT/HCPCS: 73630